=== PATIENT | male | born 1990 | race Caucasian/White ===

== ENCOUNTER 2016-08-24 01:16 | Emergency (ER) | payer SELFPAY ==
--- NOTE | 2016-08-24 01:49 | ER Document Report ---
ED General - General Chief Complaint: Hand Pain Stated Complaint: HAND PAIN Time Seen by Provider: 08/24/16 01:32 Notes: Patient is a 25-year-old male who presents with complaint of pain in his hand. He says he was bit by dog. He went [facility]. He was treated by an orthopedist named Dr. Chavira. Patient says that he was told by Dr. Chavira that he would have to go to the ER to have the sutures removed and that he did not want to see him back in his office. Patient says that Dr. Chavira initially just gave him tramadol for the pain which did not work and then prescribed him just a few oxycodone afterwards. He says he has had no further pain medications from any other providers. Patient denies any fevers. He says he still has pain into the hand and finger and pain that radiates down the arm. He has not followed up with any further orthopedics. TRAVEL OUTSIDE OF THE [place] IN LAST 30 DAYS: No Past Medical History - Social History Smoking Status: Current Every Day Smoker Frequency of alcohol use: Social Drug Abuse: None Family History: Reviewed & Not Pertinent Patient has suicidal ideation: No Patient has homicidal ideation: No Renal/ Medical History: Denies: Hx Peritoneal Dialysis Review of Systems - Review of Systems Notes: My Normal Review Basic REVIEW OF SYSTEMS: CONSTITUTIONAL : Denies fever, chills, or sweats. Denies recent illness. EENT: Denies eye, ear, throat, or mouth pain or symptoms. Denies nasal or sinus congestion. CARDIOVASCULAR: Denies chest pain. RESPIRATORY: Denies cough, cold, or chest congestion. Denies shortness of breath, difficulty breathing, or wheezing. GASTROINTESTINAL: Denies abdominal pain. Denies nausea, vomiting, or diarrhea. Denies constipation. Last BM: MUSCULOSKELETAL: Hand pain. SKIN: Denies rash or skin lesions. NEUROLOGICAL: Denies altered mental status or loss of consciousness. Denies headache. Denies weakness or paralysis or loss of use of either side. Denies problems with gait or speech. Denies sensory or motor loss. ALL OTHER SYSTEMS REVIEWED AND NEGATIVE. Physical Exam - Vital signs Vitals: Temp Pulse Resp BP Pulse Ox 97.9 F 122 H 20 139/97 H 98 08/24/16 01:21 08/24/16 01:21 08/24/16 01:21 08/24/16 01:21 08/24/16 01:21 - Notes Notes: General Appearance: Well nourished, alert, cooperative, no acute distress, moderate obvious discomfort. Vitals: reviewed, See vital signs table. Eyes: PERRL, EOMI, Conjuctiva clear Extremities: strength 5/5 in all extremities, good pulses in all extremities, patient has stitches in the palmar aspect of the right middle finger. He has approximate 9 stitches. He does have some scabbing over some of the stitches over the finger. He is able to partially flex his ankle. He is able to extend the finger. He has decreased distal sensation in the distal third of the finger. He has good capillary refill. Normal color. Minimal swelling. No redness or warmth. No discharge from the finger. Surgical wound appears to have healed well., no edema. Skin: warm, dry, appropriate color, no rash Neuro: speech clear, oriented x 3, normal affect, responds appropriately to questions. Course - Re-evaluation Re-evalutation: 08/24/16 02:12 I was able to get in contact with Dr. Chavira, patient's orthopedic surgeon. He says that is not true that he told the patient come back to the ER for suture removal. He says that he told the patient to call the office to make a follow-up appointment so that they can have the sutures removed and also to start him on physical therapy to help rehabilitate and get function of his finger improved. He says the patient never called made the appointment. He says that it is okay for me to remove the sutures. I did remove the sutures. Patient's mother is now in the room. She says that she was at the appointment and that that is not what Dr. Chavira said. They request to be referred to a different orthopedic or hand surgeon. I will refer him to Dr. Daniels here in town. Encouraged to call the office to make a follow -up appointment. Currently his finger is not red, somewhat abnormally swollen, there is no abnormal drainage, there is no signs of infection on exam. He does have pain. I did ask the patient initially about pain medications and pain prescriptions. I asked him clearly if he had received any pain prescriptions other than the one prescription for Ultram and one prescription for Percocet. I asked him if he received any further pain prescription from any other doctors. Patient told me know multiple times. His [place] controlled substance database report says otherwise. He received a prescription from Dr. Iglesias for Percocet. He received 2 prescriptions of Percocet from Dr. chavez. He then received a prescription for hydrocodone from Dr. Medley who is in [facility]. Informed patient that because of the discrepancy I do not feel comfortable prescribing him opiate pain medications. I told him I would give him 1 dose of pain medication here since it just removed his sutures but do not feel comfortable continuing to prescribe opiate pain medications. Patient and his mother understand. Patient encouraged to return to ER if there is any redness, swelling, abnormal drainage, or signs of infection. He is encouraged follow-up with either Dr. Chavira or Dr. Daniels in regards to his hand and arrangement for physical therapy. 08/25/16 00:46 - Vital Signs Vital signs: Temp Pulse Resp BP Pulse Ox 97.2 F 94 16 141/91 H 99 08/24/16 02:24 08/24/16 02:24 08/24/16 02:24 08/24/16 02:24 08/24/16 02:24 Discharge - Discharge Clinical Impression: Encounter for removal of sutures, Post-op pain Condition: Good Disposition: HOME, SELF-CARE Additional Instructions: Please return to the ER immediately if you have worsening pain, fevers, increasing swelling, redness or feel unwell. Please followup with Dr. Chavira or Dr. Daniels for reevaluation and arrangement for therapy, and continued management of your hand . Referrals: LITA DANIELS DO [ACTIVE STAFF] - Follow up in 3-5 days
[2016-08-24] MEDS ORDERED: OXYCODONE-ACETAMINOPHEN 5-325 MG TABLET PO ONE (02:18)
[2016-08-24 02:25] VITALS: BP 141/91
== END 2016-08-24 02:25 | disposition home or self-care (01) ==
LOC: ER 01:16
DX: S61.252D Open bite of right middle finger without damage to nail, subsequent encounter (principal); W54.0XXD Bitten by dog, subsequent encounter; G89.18 Other acute postprocedural pain; M79.643 Pain in unspecified hand; M79.646 Pain in unspecified finger(s); R20.8 Other disturbances of skin sensation; F17.200 Nicotine dependence, unspecified, uncomplicated
CPT/HCPCS: 99283

== ENCOUNTER 2019-01-13 23:34 | Emergency (ER) | payer SELFPAY ==
[2019-01-14] MEDS ORDERED: ONDANSETRON HCL INJ/PF 4 MG/2 ML SDV IV ONE (01:34)
[2019-01-14] MEDS ORDERED: NORMAL SALINE 500 ML IV ONE (01:35)
[2019-01-14 01:40] LABS: ABSOLUTE BASOPHILS # (AUTO) 0.1 10^3/uL (0.0-0.2); ABSOLUTE EOSINOPHILS # (AUTO) 0.1 10^3/uL (0.0-0.6); ABSOLUTE LYMPHOCYTES (AUTO) 2.2 10^3/uL (0.5-4.7); ABSOLUTE MONOCYTES (AUTO) 0.7 10^3/uL (0.1-1.4); BASOPHILS % (AUTO) 0.8 % (0-2); EOSINOPHILS % (AUTO) 1.1 % (0-6); HEMATOCRIT 44.6 % (37.9-51.0); HEMOGLOBIN 15.2 g/dL (13.5-17.0); LYMPHOCYTES % (AUTO) 16.4 % (13-45); MEAN CORPUSCULAR HEMOGLOBIN 33.3 pg (27.0-33.4); MEAN CORPUSCULAR HGB CONC 34.1 g/dL (32.0-36.0); MEAN CORPUSCULAR VOLUME 98 fl (80-97); MONOCYTES % (AUTO) 5.3 % (3-13); PLATELET COUNT 326 10^3/uL (150-450); RED BLOOD COUNT 4.56 10^6/uL (4.35-5.55); RED CELL DISTRIBUTION WIDTH 13.5 % (11.5-14.0); SEGMENTED NEUTROPHILS % (AUTO) 76.4 % (42-78); TOTAL CELLS COUNTED % (AUTO) 100 %; WHITE BLOOD COUNT 13.1 10^3/uL (4.0-10.5)
[2019-01-14 01:50] LABS: APPEARANCE,URINE SLIGHTLY-CLOUDY; BILIRUBIN,URINE NEGATIVE (NEGATIVE); COLOR,URINE YELLOW; GLUCOSE, URINE NEGATIVE (NEGATIVE); KETONES,URINE NEGATIVE (NEGATIVE); LEUKOCYTE ESTERASE,URINE MODERATE (NEGATIVE); NITRITE,URINE NEGATIVE (NEGATIVE); PROTEIN,URINE 30 mg/dL (NEGATIVE); UROBILINOGEN,URINE NEGATIVE mg/dL (<2.0)
[2019-01-14 03:30] LABS: ALBUMIN 4.1 g/dL (3.5-5.0); ALKALINE PHOSPHATASE 68 U/L (38-126); ANION GAP 8 (5-19); ASPARTATE AMINO TRANSFERASE 20 U/L (17-59); BILIRUBIN,DIRECT 0.1 mg/dL (0.0-0.4); BILIRUBIN,TOTAL 0.4 mg/dL (0.2-1.3); BLOOD UREA NITROGEN 17 mg/dL (7-20); CALCIUM 9.2 mg/dL (8.4-10.2); CARBON DIOXIDE 27 mmol/L (22-30); CHLORIDE 107 mmol/L (98-107); GLUCOSE 89 mg/dL (75-110); POTASSIUM 4.7 mmol/L (3.6-5.0); TOTAL PROTEIN 6.8 g/dL (6.3-8.2)
[2019-01-14] MEDS ORDERED: MORPHINE SULFATE 10 MG/ML INJ IV ONE (03:50)
[2019-01-14] MEDS ORDERED: KETOROLAC TROMETHAMINE INJ/PF 30 MG/1 ML SDV IV ONE (03:50)
[2019-01-14] MEDS ORDERED: NORMAL SALINE 1000 ML 1,500 ML IV ONE (03:50)
--- NOTE | 2019-01-14 03:53 | ER Document Report ---
ED GI/ - General Chief Complaint: Flank Pain Stated Complaint: ABDOMINAL PAIN Time Seen by Provider: 01/14/19 03:40 Notes: Mr. Seaman is a 28-year-old male with history of kidney stones, congenital solitary right-sided kidney, PTSD, anxiety presenting to the ED for right-sided flank pain. Patient states it began just earlier this evening. He also endorses some pink-tinged urine. Patient denies any chest pain, shortness of breath or cough. He states that he did not have nausea until he arrived to the ED and and threw up twice however the nausea medication that was provided to him did help. Patient also denies any known fevers but does endorse subjective fevers and chills. No difficulty initiating stream. Patient also adds that he has had multiple history of spontaneous pneumothorax is on the left and has had 2 pleurodesis. TRAVEL OUTSIDE OF THE [place] IN LAST 30 DAYS: No - Related Data Allergies/Adverse Reactions: NSAIDS (Non-Steroidal Anti-Inflamma Allergy (Verified 01/14/19 01:36) Past Medical History - Social History Smoking Status: Former Smoker Family History: Reviewed & Not Pertinent Patient has suicidal ideation: No Patient has homicidal ideation: No Renal/ Medical History: Reports: Hx Kidney Stones. Denies: Hx Peritoneal Dialysis Review of Systems - Review of Systems Constitutional: See HPI EENT: No symptoms reported Cardiovascular: No symptoms reported Respiratory: No symptoms reported Gastrointestinal: No symptoms reported Genitourinary: See HPI Male Genitourinary: No symptoms reported Musculoskeletal: No symptoms reported Skin: No symptoms reported Hematologic/Lymphatic: No symptoms reported Neurological/Psychological: No symptoms reported Physical Exam - Vital signs Vitals: Temp Pulse Ox 97.9 F 98 01/13/19 23:35 01/13/19 23:35 Interpretation: Hypertensive - General General appearance: Appears well, Alert - HEENT Head: Normocephalic, Atraumatic Eyes: Normal Pupils: PERRL - Respiratory Respiratory status: No respiratory distress Chest status: Nontender Breath sounds: Normal Chest palpation: Normal - Cardiovascular Rhythm: Regular Heart sounds: Normal auscultation Murmur: No - Abdominal Inspection: Normal Distension: No distension Bowel sounds: Normal Tenderness: Nontender Organomegaly: No organomegaly - Back Back: Normal, Nontender, CVA tenderness - CVA tenderness - Extremities General upper extremity: Normal inspection, Nontender, Normal color, Normal ROM, Normal temperature General lower extremity: Normal inspection, Nontender, Normal color, Normal ROM, Normal temperature, Normal weight bearing. No: Raheel's sign - Neurological Neuro grossly intact: Yes Cognition: Normal Orientation: AAOx4 Leopoldo Coma Scale Eye Opening: Spontaneous Leopoldo Coma Scale Verbal: Oriented Leopoldo Coma Scale Motor: Obeys Commands [place] Coma Scale Total: 15 Speech: Normal Motor strength normal: LUE, RUE, LLE, RLE Sensory: Normal - Psychological Associated symptoms: Normal affect, Normal mood - Skin Skin Temperature: Warm Skin Moisture: Dry Skin Color: Normal Course - Re-evaluation Re-evalutation: Patient is uncomfortable appearing but nontoxic. Initial vitals blood for elevated blood pressure. Differential diagnosis includes UTI, pyelonephritis, nephrolithiasis, infected stone CBC notable for leukocytosis to 13 without significant left shift. CMP within normal limits. UA does show evidence of significant amount of RBCs and only 12 WBCs. Patient did have some mild CVA tenderness however the UA is not consistent with a significant UTI or pyelonephritis. Lipase is mildly at 498 h owever elevated however this is not consistent with pancreatitis. Patient denies any history of gallstones or significant alcohol use. He denies any previous history of pancreatitis in the past. In addition the patient is primarily tender in the right flank radiating down to his right groin and not over the epigastrium or left upper quadrant. 01/14/19 03:48 And ordered for Toradol as well as morphine for pain control. His states his family has had history of GI bleeding with NSAIDs he was told by his doctor not to take it however he does not have a true allergy. 01/14/19 05:[address] is negative for any acute process. No evidence of stones on the right. Congenital solitary kidney noted with no left kidney. Feels improved after IV fluids as well as pain medications. He is requesting further clarification of the etiology of the hematuria. I explained that normally kidney stones are the #1 cause however he might need further evaluation by urology. Patient referred back to his primary care doctor for urology referral. 01/14/19 06:31 Tox returned much later and was positive for marijuana as well as benzos. - Vital Signs Vital signs: Temp Pulse Resp BP Pulse Ox 98.6 F 86 16 151/86 H 98 01/14/19 05:27 01/14/19 05:27 01/14/19 05:27 01/14/19 05:27 01/14/19 05:27 - Laboratory Result Diagrams: 01/14/19 01:30 01/14/19 02:50 Laboratory results interpreted by me: 01/14/19 01/14/19 01/14/19 01:30 01:30 02:50 WBC 13.1 H MCV 98 H Absolute Neuts (auto) 10.0 H Lipase 498.1 H Urine Protein 30 H Urine Blood LARGE H Ur Leukocyte Esterase MODERATE H Discharge - Discharge Clinical Impression: Right flank pain Hematuria Qualifiers: Hematuria type: unspecified type Qualified Code(s): R31.9 - Hematuria, unspecified Condition: Good Disposition: HOME, SELF-CARE Instructions: Flank Pain ([facility]), Hematuria ([facility]) Additional Instructions: I would recommend that you drink plenty of water and or Gatorade and stay well- hydrated. I would also recommend that you follow-up with your primary care doctor and request a referral to urology. Use Tylenol 650 every 6-8 hours as needed for pain control.
--- NOTE | 2019-01-14 04:39 | RADIOLOGY REPORT (SQ) ---
EXAM DESCRIPTION: CT ABDOMEN PELVIS WITHOUT IV CONTRAST COMPLETED DATE/TME: 01/14/2019 03:42 CLINICAL HISTORY: 28 years, Male, RIGHT flank pain COMPARISON: None. TECHNIQUE: 308 Images stored on PACS. All CT scanners at this facility use dose modulation, iterative reconstruction, and/or weight based dosing when appropriate to reduce radiation dose to as low as reasonably achievable (ALARA). [facility]: Dose Right [facility]: CareDose [facility]: Dose Right [facility]: Teradose 4D [facility]: HE[facility] [employer] LIMITATIONS: None. FINDINGS: Limited evaluation of the lung bases is unremarkable. Osseous structures are grossly intact. Limited evaluation of the liver, spleen, adrenal glands, pancreas is unremarkable. A normal left kidney is not present. Unremarkable appearance to the right kidney. Negative for urinary tract calculus or hydronephrosis. No gross evidence for bowel obstruction. Large amount of stool in the colon. Normal appendix. No free air or free fluid IMPRESSION: There is no left kidney, likely congenitally absent. Unremarkable appearance to the right kidney. Abundant stool in the colon TECHNICAL DOCUMENTATION: Quality ID # [id number]: Final reports with documentation of one or more dose reduction techniques (e.g., Automated exposure control, adjustment of the mA and/or kV according to patient size, use of iterative reconstruction technique) copyright 2010 [employer]- All Rights Reserved
[2019-01-14 05:27] VITALS: BP 151/86
[2019-01-14 05:53] LABS: URINE AMPHETAMINES SCREEN NEGATIVE; URINE BARBITURATES SCREEN NEGATIVE; URINE COCAINE SCREEN NEGATIVE; URINE METHADONE SCREEN NEGATIVE; URINE PHENCYCLIDINE SCREEN NEGATIVE
[2019-01-14 05:54] LABS: URINE BENZODIAZEPINES SCREEN UNCONFIRMED POSITIVE; URINE MARIJUANA (THC) SCREEN UNCONFIRMED POSITIVE
== END 2019-01-14 05:27 | disposition home or self-care (01) ==
LOC: ER 23:34
DX: R10.9 Unspecified abdominal pain (principal); R31.9 Hematuria, unspecified; R11.2 Nausea with vomiting, unspecified; D72.829 Elevated white blood cell count, unspecified; R10.819 Abdominal tenderness, unspecified site; Q60.0 Renal agenesis, unilateral; Z87.442 Personal history of urinary calculi; Z87.891 Personal history of nicotine dependence
CPT/HCPCS: 99284; 96361; 96374; 96375; 36415; 83690; 85025; 80053; 81001; 80307; 74176; J1885; J2270; J2405; J7030; J7040

== ENCOUNTER 2019-07-29 16:15 | Emergency (ER) | payer SELFPAY ==
--- NOTE | 2019-07-29 16:50 | RADIOLOGY REPORT (SQ) ---
EXAM DESCRIPTION: ANKLE RIGHT COMPLETE IMAGES COMPLETED DATE/TIME: 07/29/2019 4:37 pm REASON FOR STUDY: pain COMPARISON: None. NUMBER OF VIEWS: Three views. TECHNIQUE: AP, lateral, and oblique radiographic images acquired of the right ankle. LIMITATIONS: None. FINDINGS: MINERALIZATION: Normal. BONES: No acute fracture or dislocation. No worrisome bone lesions. JOINTS: No effusions. SOFT TISSUES: No soft tissue swelling. No foreign body. OTHER: No other significant finding. IMPRESSION: NEGATIVE STUDY OF THE RIGHT ANKLE. NO RADIOGRAPHIC EVIDENCE OF ACUTE INJURY. TECHNICAL DOCUMENTATION: JOB ID: [id number] 2010 [employer] All Rights Reserved Reading location - IP/workstation name: [email or web address]
--- NOTE | 2019-07-29 16:50 | RADIOLOGY REPORT (SQ) ---
EXAM DESCRIPTION: FOOT RIGHT COMPLETE IMAGES COMPLETED DATE/TIME: 07/29/2019 4:37 pm REASON FOR STUDY: pain COMPARISON: None. NUMBER OF VIEWS: Three views. TECHNIQUE: AP, lateral and oblique radiographic images acquired of the right foot. LIMITATIONS: None. FINDINGS: MINERALIZATION: Normal. BONES: No acute fracture or dislocation. JOINTS: The normal tarsometatarsal alignment is preserved. SOFT TISSUES: No soft tissue swelling or radiopaque foreign body. OTHER: No other finding. IMPRESSION: No acute osseous abnormality of the right foot. TECHNICAL DOCUMENTATION: JOB ID: [id number] [employer]- All Rights Reserved Reading location - IP/workstation name: [email or web address]
--- NOTE | 2019-07-29 16:55 | ER Document Report ---
ED Medical Screen (RME) - General Chief Complaint: Foot Pain Stated Complaint: RIGHT FOOT PAIN Time Seen by Provider: 07/29/19 16:51 Notes: This 28-year-old male who presents to the emergency room today stating that he was out drinking last night woke up in the field this afternoon about 1:00 has no recollection of how he got there. He states that waking up in the field is non-abnormal occurrence for him recently that he has a problem with alcohol and he would like some assistance with that. That is part of his reason for presenting to the hospital today he also stated that he had pain to the right foot laterally at the fifth metatarsal x-rays were obtained and were negative TRAVEL OUTSIDE OF THE [place] IN LAST 30 DAYS: No - Related Data Allergies/Adverse Reactions: NSAIDS (Non-Steroidal Anti-Inflamma Allergy (Verified 01/14/19 01:36) Home Medications: lisinopril. zoloft Past Medical History - Social History Frequency of alcohol use: Heavy Drug Abuse: Marijuana Renal/ Medical History: Reports: Hx Kidney Stones. Denies: Hx Peritoneal Dialysis Physical Exam - Vital signs Vitals: Temp Pulse Resp BP Pulse Ox 99.3 F 102 H 20 158/104 H 97 07/29/19 16:22 07/29/19 16:22 07/29/19 16:22 07/29/19 16:22 07/29/19 16:22 Course - Vital Signs Vital signs: Temp Pulse Resp BP Pulse Ox 99.3 F 102 H 20 158/104 H 97 07/29/19 16:22 07/29/19 16:22 07/29/19 16:22 07/29/19 16:22 07/29/19 16:22
[2019-07-29 17:38] LABS: ABSOLUTE LYMPHOCYTES (AUTO) 1.7 10^3/uL (0.5-4.7); ABSOLUTE MONOCYTES (AUTO) 0.6 10^3/uL (0.1-1.4); ABSOLUTE NEUT (AUTO) 7.5 10^3/uL (1.7-8.2); APPEARANCE,URINE CLOUDY; BASOPHILS % (AUTO) 0.4 % (0-2); BILIRUBIN,URINE NEGATIVE (NEGATIVE); COLOR,URINE AMBER; EOSINOPHILS % (AUTO) 0.5 % (0-6); GLUCOSE, URINE NEGATIVE (NEGATIVE); HEMATOCRIT 45.7 % (37.9-51.0); HEMOGLOBIN 15.9 g/dL (13.5-17.0); KETONES,URINE NEGATIVE (NEGATIVE); LEUKOCYTE ESTERASE,URINE NEGATIVE (NEGATIVE); LYMPHOCYTES % (AUTO) 17.4 % (13-45); MEAN CORPUSCULAR HEMOGLOBIN 34.4 pg (27.0-33.4); MEAN CORPUSCULAR HGB CONC 34.8 g/dL (32.0-36.0); MEAN CORPUSCULAR VOLUME 99 fl (80-97); MONOCYTES % (AUTO) 6.2 % (3-13); NITRITE,URINE NEGATIVE (NEGATIVE); PLATELET COUNT 275 10^3/uL (150-450); PROTEIN,URINE 30 mg/dL (NEGATIVE); RED BLOOD COUNT 4.63 10^6/uL (4.35-5.55); SEGMENTED NEUTROPHILS % (AUTO) 75.5 % (42-78); TOTAL CELLS COUNTED % (AUTO) 100 %; URINE SPECIFIC GRAVITY 1.032; WHITE BLOOD COUNT 9.9 10^3/uL (4.0-10.5)
[2019-07-29 17:50] LABS: ALBUMIN 4.8 g/dL (3.5-5.0); ALCOHOL 72 mg/dL (NONE DETECTED); ALKALINE PHOSPHATASE 109 U/L (38-126); ANION GAP 9 (5-19); ASPARTATE AMINO TRANSFERASE 33 U/L (17-59); BILIRUBIN,TOTAL 0.8 mg/dL (0.2-1.3); BLOOD UREA NITROGEN 13 mg/dL (7-20); CALCIUM 9.8 mg/dL (8.4-10.2); CARBON DIOXIDE 26 mmol/L (22-30); CHLORIDE 106 mmol/L (98-107); GLUCOSE 72 mg/dL (75-110); POTASSIUM 4.3 mmol/L (3.6-5.0); TOTAL PROTEIN 7.9 g/dL (6.3-8.2)
[2019-07-29 17:51] LABS: URINE AMPHETAMINES SCREEN NEGATIVE; URINE BARBITURATES SCREEN NEGATIVE; URINE BENZODIAZEPINES SCREEN NEGATIVE; URINE COCAINE SCREEN NEGATIVE; URINE METHADONE SCREEN NEGATIVE; URINE PHENCYCLIDINE SCREEN NEGATIVE
[2019-07-29 17:52] LABS: URINE MARIJUANA (THC) SCREEN UNCONFIRMED POSITIVE
--- NOTE | 2019-07-29 19:35 | ER Document Report ---
ED General - General Chief Complaint: Foot Pain Stated Complaint: RIGHT FOOT PAIN Time Seen by Provider: 07/29/19 16:51 Mode of Arrival: Medic Information source: Patient TRAVEL OUTSIDE OF THE [place] IN LAST 30 DAYS: No - HPI Onset: Other - patient has had right foot pain for days but he has had a drinking problem for some time now Exacerbated by: Other - weight bearing on right foot Relieved by: Other Similar symptoms previously: Yes - patient has not had this foot pain before but he has had drinking problems Recently seen / treated by doctor: No Notes: 28 year old male with a history of Alcohol Abuse here in the ER for right foot pain (he is unsure how he injured his right foot) and a desire to stop get help to stop drinking. The patient drinks about 8 drinks a day and he frequently blacks out. The patient recently woke up 3 miles from his house and he has no idea ho he got there. The patient is able to ambulate on his right foot but he has some pain doing so. - Related Data Allergies/Adverse Reactions: NSAIDS (Non-Steroidal Anti-Inflamma Allergy (Verified 01/14/19 01:36) Home Medications: lisinopril. zoloft Past Medical History - General Information source: Patient - Social History Smoking Status: Current Every Day Smoker Frequency of alcohol use: Heavy - daily drinker Drug Abuse: Marijuana Family History: Reviewed & Not Pertinent Renal/ Medical History: Reports: Hx Kidney Stones. Denies: Hx Peritoneal Dialysis Review of Systems - Review of Systems Constitutional: No symptoms reported EENT: No symptoms reported Cardiovascular: No symptoms reported Respiratory: No symptoms reported Gastrointestinal: No symptoms reported Genitourinary: No symptoms reported Male Genitourinary: No symptoms reported Musculoskeletal: Other - right lateral foot pain Skin: Other - brusing of right foot Hematologic/Lymphatic: No symptoms reported Neurological/Psychological: Depression, Other - Alcohol Abuse -: Yes All other systems reviewed and negative Physical Exam - Vital signs Vitals: Temp Pulse Resp BP Pulse Ox 99.3 F 102 H 20 158/104 H 97 07/29/19 16:22 07/29/19 16:22 07/29/19 16:22 07/29/19 16:22 07/29/19 16:22 - Notes Notes: GENERAL: Well-appearing, well-nourished and in no acute distress. HEAD: Atraumatic, normocephalic. EYES: Pupils equal round and reactive to light, extraocular movements intact, sclera anicteric, conjunctiva are normal. ENT: External ears normal, nares patent, oropharynx clear without exudates. Moist mucous membranes. NECK: Normal range of motion, supple without lymphadenopathy or JVD. LUNGS: Breath sounds clear to auscultation bilaterally and equal. No wheezes rales or rhonchi. HEART: Regular rate and rhythm without murmurs, rubs or gallops. ABDOMEN: Soft, nontender, normoactive bowel sounds. No guarding, no rebound. No masses appreciated. EXTREMITIES: Normal range of motion, no pitting or edema. No clubbing or cya nosis. NEUROLOGICAL: Cranial nerves II through XII grossly intact. Normal speech, normal gait. PSYCH: Normal mood, normal affect. SKIN: Warm, Dry, normal turgor, no rashes or lesions noted. Course - Re-evaluation Re-evalutation: 07/29/19 19:48 The patient seems to have some old bruises on his right foot. He has been drinking heavily and blacking out frequently so there is no telling when or how he injured his foot. No fractures seen on Xrays. Patient likely has pain from contusions/sprains. Patient told to ice his foot and to use NSAIDS. Will try to send the patient to [facility] for Detox as he wants help. Patient denies SI or HI. 07/29/19 20:00 [facility] has a bed for the patient so will DC from the ER and have him go directly to [facility] to get help with his drinking problem. - Vital Signs Vital signs: Temp Pulse Resp BP Pulse Ox 99.3 F 102 H 20 158/104 H 97 07/29/19 16:22 07/29/19 16:22 07/29/19 16:22 07/29/19 16:22 07/29/19 16:22 - Laboratory Result Diagrams: 07/29/19 17:14 07/29/19 17:14 Laboratory results interpreted by me: 07/29/19 07/29/19 07/29/19 17:14 17:14 17:14 MCV 99 H MCH 34.4 H Glucose 72 L Urine Protein 30 H Urine Blood LARGE H Urine Urobilinogen 2.0 H Urine Ascorbic Acid 20 H - Diagnostic Test Radiology reviewed: Image reviewed, Reports reviewed Discharge - Discharge Clinical Impression: Alcohol abuse Contusion, foot Qualifiers: Encounter type: initial encounter Laterality: right Qualified Code(s): S90.31XA - Contusion of right foot, initial encounter Condition: Stable Disposition: HOME, SELF-CARE Instructions: Chronic Alcoholism ([facility]), Plantar Fasciitis or Heel Spur ([facility]) Additional Instructions: Use Tylenol and Motrin for foot pain as well as ice packs. Follow up with an Orthopedic Surgeon if your foot pains persist. Go to directly to [facility] to get help with your drinking problem.
[2019-07-29 20:12] VITALS: BP 149/78
== END 2019-07-29 20:10 | disposition home or self-care (01) ==
LOC: ER 16:15
DX: S90.31XA Contusion of right foot, initial encounter (principal); X58.XXXA Exposure to other specified factors, initial encounter; F10.10 Alcohol abuse, uncomplicated; M79.671 Pain in right foot; F17.200 Nicotine dependence, unspecified, uncomplicated; F12.10 Cannabis abuse, uncomplicated; F32.9 Major depressive disorder, single episode, unspecified; Z79.899 Other long term (current) drug therapy; Z88.8 Allergy status to other drugs, medicaments and biological substances
CPT/HCPCS: 36415; 80053; 80307; 81001; 85025; 99284

== ENCOUNTER 2019-07-30 23:18 | Emergency (ER) | payer SELFPAY ==
[2019-07-30] MEDS ORDERED: MORPHINE SULFATE 10 MG/ML INJ IV ONE (23:47)
[2019-07-30] MEDS ORDERED: ONDANSETRON HCL INJ/PF 4 MG/2 ML SDV IV ONE (23:47)
--- NOTE | 2019-07-30 23:48 | ER Document Report ---
ED Medical Screen (RME) - General Chief Complaint: Flank Pain Stated Complaint: POSSIBLE KIDNEY STONE Notes: Patient is a 28-year-old white male with a history of multiple kidney stones who was born with 1 kidney on the right resents today with a chief complaint of a r ight-sided "kidney pain". He states this feels exactly like his prior 5 or 6 stones he is had in the past. He states he has had some urinary dribbling with low output. States he had had lithotripsy once but otherwise he passed the rest on his own. No invasive urologic surgeries. Denies any nausea or vomiting or fever. No testicular pain or swelling. I have treated and performed a rapid initial assessment of this patient. A comprehensive ED assessment and evaluation of the patient, analysis of test results and completion of medical decision making process will be conducted by additional ED providers. PHYSICAL EXAMINATION: GENERAL: Well-appearing, well-nourished and in no acute distress. A&Ox4. Answers questions appropriately. TRAVEL OUTSIDE OF THE [place] IN LAST 30 DAYS: No - Related Data Allergies/Adverse Reactions: NSAIDS (Non-Steroidal Anti-Inflamma Allergy (Verified 01/14/19 01:36) Past Medical History - Social History Chew tobacco use (# tins/day): No Frequency of alcohol use: Heavy Drug Abuse: Marijuana Renal/ Medical History: Reports: Hx Kidney Stones. Denies: Hx Peritoneal Dialysis Physical Exam - Vital signs Vitals: Temp 98.1 F 07/30/19 23:41 Course - Vital Signs Vital signs: Temp Pulse Resp BP Pulse Ox 98.1 F 128 H 18 163/97 H 96 07/30/19 23:46 07/30/19 23:46 07/30/19 23:46 07/30/19 23:46 07/30/19 23:46
--- NOTE | 2019-07-31 01:04 | RADIOLOGY REPORT (SQ) ---
CLINICAL HISTORY: r flank pain h/o stones COMPARISON: 01/14/2019. TECHNIQUE: CT ABDOMEN PELVIS WITHOUT IV CONTRAST on 07/30/2019 11:46 PM CDT This exam was performed according to our departmental dose-optimization program, which includes automated exposure control, adjustment of the mA and/or kV according to patient size and/or use of iterative reconstruction technique. FINDINGS: Lower lungs are clear. Abdomen: The liver is normal in appearance. There is no biliary dilatation. Gallbladder is normal in appearance. The pancreas and spleen are normal in appearance. Adrenal glands are normal. There is a punctate mid pole right renal calculus without hydronephrosis. Left kidney is absent. Abdominal aorta is normal in course and caliber without aneurysm. There is no free air. There is no retroperitoneal adenopathy. Pelvis: There is no bowel obstruction. Urinary bladder is unremarkable. There is no free fluid. Appendix is somewhat poorly seen but there is no pericecal inflammation. Skeleton: There are no acute osseous findings. No suspicious bony lesions. IMPRESSION: No definite acute process. Unchanged minimal right nephrolithiasis without hydronephrosis.
[2019-07-31 01:56] LABS: AMORPHOUS SEDIMENT,URINE TRACE /HPF; APPEARANCE,URINE SLIGHTLY-CLOUDY; BILIRUBIN,URINE NEGATIVE (NEGATIVE); COLOR,URINE YELLOW; GLUCOSE, URINE NEGATIVE (NEGATIVE); KETONES,URINE NEGATIVE (NEGATIVE); PROTEIN,URINE NEGATIVE (NEGATIVE); URINE SPECIFIC GRAVITY 1.005; UROBILINOGEN,URINE NEGATIVE mg/dL (<2.0)
[2019-07-31 02:42] LABS: ABSOLUTE EOSINOPHILS # (AUTO) 0.1 10^3/uL (0.0-0.6); ABSOLUTE LYMPHOCYTES (AUTO) 1.7 10^3/uL (0.5-4.7); ABSOLUTE MONOCYTES (AUTO) 0.7 10^3/uL (0.1-1.4); ABSOLUTE NEUT (AUTO) 3.9 10^3/uL (1.7-8.2); BASOPHILS % (AUTO) 0.7 % (0-2); EOSINOPHILS % (AUTO) 1.1 % (0-6); HEMATOCRIT 44.1 % (37.9-51.0); HEMOGLOBIN 15.1 g/dL (13.5-17.0); LYMPHOCYTES % (AUTO) 26.5 % (13-45); MEAN CORPUSCULAR HGB CONC 34.2 g/dL (32.0-36.0); MEAN CORPUSCULAR VOLUME 99 fl (80-97); MONOCYTES % (AUTO) 11.1 % (3-13); PLATELET COUNT 210 10^3/uL (150-450); RED BLOOD COUNT 4.43 10^6/uL (4.35-5.55); RED CELL DISTRIBUTION WIDTH 12.7 % (11.5-14.0); SEGMENTED NEUTROPHILS % (AUTO) 60.6 % (42-78); TOTAL CELLS COUNTED % (AUTO) 100 %; WHITE BLOOD COUNT 6.5 10^3/uL (4.0-10.5)
[2019-07-31 02:51] LABS: ALBUMIN 4.4 g/dL (3.5-5.0); ALKALINE PHOSPHATASE 93 U/L (38-126); ASPARTATE AMINO TRANSFERASE 28 U/L (17-59); BILIRUBIN,TOTAL 1.1 mg/dL (0.2-1.3); BLOOD UREA NITROGEN 11 mg/dL (7-20); CARBON DIOXIDE 29 mmol/L (22-30); CHLORIDE 105 mmol/L (98-107); GLUCOSE 110 mg/dL (75-110); POTASSIUM 4.3 mmol/L (3.6-5.0); TOTAL PROTEIN 7.3 g/dL (6.3-8.2)
[2019-07-31] MEDS ORDERED: ONDANSETRON HCL INJ/PF 4 MG/2 ML SDV ONE (03:13)
[2019-07-31 03:16] LABS: ANION GAP 4 (5-19)
[2019-07-31 06:26] VITALS: BP 148/72
--- NOTE | 2019-07-31 11:34 | ER Document Report ---
Entered by BIN SANTIZO SCRIBE 07/31/19 0641 Acting as scribe for:OLGA MCDANIEL MD ED GI/ - General Chief Complaint: Flank Pain Stated Complaint: POSSIBLE KIDNEY STONE Mode of Arrival: Ambulatory Information source: Patient Notes: This 28 year old male patient presents to the emergency department today with complaints of right sided flank pain with associated hematuria. Patient was seen here yesterday for help with alcohol detox and he was sent to [facility]. Patient states that while he was there over night last night he went to use the restroom and only had a small amount of urine come out and he noticed it was bloody. Patient has had kidney stones in the past. TRAVEL OUTSIDE OF THE [place] IN LAST 30 DAYS: No - Related Data Allergies/Adverse Reactions: NSAIDS (Non-Steroidal Anti-Inflamma Allergy (Verified 01/14/19 01:36) Past Medical History - General Information source: Patient - Social History Smoking Status: Current Every Day Smoker Cigarette use (# per day): Yes Chew tobacco use (# tins/day): No Frequency of alcohol use: Heavy Drug Abuse: Marijuana Lives with: Family Family History: Reviewed & Not Pertinent Renal/ Medical History: Reports: Hx Kidney Stones Surgical Hx: Negative Review of Systems - Review of Systems Constitutional: No symptoms reported EENT: No symptoms reported Cardiovascular: No symptoms reported Respiratory: No symptoms reported Gastrointestinal: No symptoms reported Genitourinary: See HPI, Dysuria, Flank pain, Hematuria, Urgency Male Genitourinary: No symptoms reported Musculoskeletal: No symptoms reported Skin: No symptoms reported Hematologic/Lymphatic: No symptoms reported Neurological/Psychological: No symptoms reported -: Yes All other systems reviewed and negative Physical Exam - Vital signs Vitals: Temp 98.1 F 07/30/19 23:41 - Notes Notes: Physical Exam: General: Alert, appears well. HEENT: Normocephalic. Atraumatic. PERRL. Extraocular movements intact. Oropharynx clear. Neck: Supple. Non-tender. Respiratory: No respiratory distress. Clear and equal breath sounds bilaterally. Cardiovascular: Regular rate and rhythm. Abdominal: Normal Inspection. Non-tender. No distension. Normal Bowel Sounds. Back: Right side paravertebral lumbar musculature tenderness to palpation. Extremities: Moves all four extremities. Upper extremities: Normal inspection. Normal ROM. Lower extremities: Normal inspection. No edema. Normal ROM. Neurological: Normal cognition. AAOx4. Normal speech. Psychological: Normal affect. Normal Mood. Skin: Warm. Dry. Normal color. Course - Vital Signs Vital signs: Temp Pulse Resp BP Pulse Ox 98.4 F 88 16 148/72 H 98 07/31/19 06:25 07/31/19 06:25 07/31/19 06:25 07/31/19 06:25 07/31/19 06:25 - Laboratory Result Diagrams: 07/31/19 02:26 07/31/19 02:26 Laboratory results interpreted by me: 07/31/19 07/31/19 07/31/19 01:26 02:26 02:26 MCV 99 H MCH 34.0 H Anion Gap 4 L Urine Blood LARGE H Leukocyte Esterase Rfl LARGE H Discharge - Discharge Clinical Impression: Acute right flank pain Hematuria Qualifiers: Hematuria type: unspecified type Qualified Code(s): R31.9 - Hematuria, un specified Condition: Stable Disposition: HOME, SELF-CARE Additional Instructions: Flank Pain We weren't able to prove an exact cause for your flank pain. Pain in the flank can be caused by a muscle strain or spasm. Sometimes a kidney stone causes pain, but can't be found on our tests. Infection in the kidney should be evident on a urine test. Early shingles can occasionally cause flank pain, without the rash that proves the diagnosis. On rare occasions, disease of the pancreas, aorta, spleen, or colon can create pain in the flank. At this time, there's no evidence of a dangerous condition, and it seems sa fe for you to be at home. If the pain goes away and does not come back, no further testing will be needed. If pain persists, or becomes more severe, we may need to repeat some tests or order additional new testing. Blood in the urine, urgency to urinate frequently, and pain that radiates to the groin can indicate a kidney stone. Fever may mean that the pain is due to infection, either of the kidney or the colon (diverticulitis). If your pain is early shingles, you should develop an eruption of blisters in the painful area within a few days. Call the doctor or return if you have pain that is spreading or becoming more severe, pain that does not resolve with time, fever, or any other new symptoms. Your CT scan today did not show any hydronephrosis, hydroureter, or stones in the ureter. There are some small stones in the kidney which you were already aware of. There was some blood in your urine today. Your physical exam shows most of the tenderness to be in the right lumbar back muscles. Based on your history, exam, and lab work, you may have passed a small stone earlier. Continue to drink plenty of fluids and try to rest your painful back muscles. Follow-up with a local medical doctor if not improving. RETURN TO THE EMERGENCY ROOM IF ANY NEW OR WORSENING SYMPTOMS. I personally performed the services described in the documentation, reviewed and edited the documentation which was dictated to the scribe in my presence, and it accurately records my words and actions.
== END 2019-07-31 06:59 | disposition home or self-care (01) ==
LOC: ER 23:18
DX: N20.0 Calculus of kidney (principal); R31.0 Gross hematuria; R10.9 Unspecified abdominal pain; F17.210 Nicotine dependence, cigarettes, uncomplicated; Z88.8 Allergy status to other drugs, medicaments and biological substances; R30.0 Dysuria; R39.15 Urgency of urination
CPT/HCPCS: 99284; 96374; 36415; 83690; 85025; 80053; 81001; 74176; J2405

== ENCOUNTER 2019-09-07 10:12 | Inpatient (IN) | payer SELFPAY ==
[2019-09-07] MEDS ORDERED: FENTANYL CITRATE INJ/PF 100 MCG/2 ML AMPUL IV ONE ×2 (10:58→14:42)
[2019-09-07] MEDS ORDERED: CEFTRIAXONE 1 GM/D5W RTU 1 GM/50 ML RTUPB IV ONE (10:59)
--- NOTE | 2019-09-07 11:00 | ER Document Report ---
ED Medical Screen (RME) - General Stated Complaint: RIGHT ELBOW INJURY Time Seen by Provider: 09/07/19 10:56 Notes: HPI: 28-year-old male presenting with an infection to the right elbow. Patient states he caught it on metal wiring 2 and half days ago cutting the back of the elbow. Now with redness and swelling to the elbow. Has been icing it at home. Low-grade fevers at home. States his tetanus is up-to-date PHYSICAL EXAMINATION: There is a wound on the posterior aspect of the right elbow. There is erythema and soft tissue swelling to the olecranon region of the elbow extending approximately 9 cm x 4 cm on the posterior aspect of the elbow no induration or fluctuant areas I have greeted and performed a rapid initial assessment of this patient. A comprehensive ED assessment and evaluation of the patient, analysis of test results and completion of medical decision making process will be conducted by an additional ED providers. TRAVEL OUTSIDE OF THE [place] IN LAST 30 DAYS: No - Related Data Allergies/Adverse Reactions: NSAIDS (Non-Steroidal Anti-Inflamma Allergy (Verified 01/14/19 01:36) Home Medications: lisinopril Past Medical History - Social History Frequency of alcohol use: None Drug Abuse: Marijuana Renal/ Medical History: Reports: Hx Kidney Stones. Denies: Hx Peritoneal Dialysis Physical Exam - Vital signs Vitals: Temp Pulse Resp BP Pulse Ox 98.0 F 80 16 142/96 H 99 09/07/19 10:18 09/07/19 10:18 09/07/19 10:18 09/07/19 10:18 09/07/19 10:18 Course - Vital Signs Vital signs: Temp Pulse Resp BP Pulse Ox 98.0 F 80 16 142/96 H 99 09/07/19 10:18 09/07/19 10:18 09/07/19 10:18 09/07/19 10:18 09/07/19 10:18
[2019-09-07 11:41] LABS: ABSOLUTE BASOPHILS # (AUTO) 0.1 10^3/uL (0.0-0.2); ABSOLUTE EOSINOPHILS # (AUTO) 0.1 10^3/uL (0.0-0.6); ABSOLUTE LYMPHOCYTES (AUTO) 1.5 10^3/uL (0.5-4.7); ABSOLUTE MONOCYTES (AUTO) 1.6 10^3/uL (0.1-1.4); ABSOLUTE NEUT (AUTO) 10.6 10^3/uL (1.7-8.2); BASOPHILS % (AUTO) 0.4 % (0-2); EOSINOPHILS % (AUTO) 0.5 % (0-6); HEMATOCRIT 44.2 % (37.9-51.0); HEMOGLOBIN 15.2 g/dL (13.5-17.0); LYMPHOCYTES % (AUTO) 10.8 % (13-45); MEAN CORPUSCULAR HEMOGLOBIN 34.5 pg (27.0-33.4); MEAN CORPUSCULAR HGB CONC 34.5 g/dL (32.0-36.0); MEAN CORPUSCULAR VOLUME 100 fl (80-97); MONOCYTES % (AUTO) 11.3 % (3-13); PLATELET COUNT 272 10^3/uL (150-450); RED BLOOD COUNT 4.41 10^6/uL (4.35-5.55); RED CELL DISTRIBUTION WIDTH 13.3 % (11.5-14.0); TOTAL CELLS COUNTED % (AUTO) 100 %; WHITE BLOOD COUNT 13.7 10^3/uL (4.0-10.5)
[2019-09-07 11:59] LABS: ALBUMIN 4.6 g/dL (3.5-5.0); ALKALINE PHOSPHATASE 139 U/L (38-126); ANION GAP 5 (5-19); ASPARTATE AMINO TRANSFERASE 25 U/L (17-59); BILIRUBIN,DIRECT 0.1 mg/dL (0.0-0.4); BILIRUBIN,TOTAL 0.7 mg/dL (0.2-1.3); BLOOD UREA NITROGEN 15 mg/dL (7-20); CALCIUM 10.2 mg/dL (8.4-10.2); CARBON DIOXIDE 28 mmol/L (22-30); CHLORIDE 103 mmol/L (98-107); GLUCOSE 97 mg/dL (75-110); POTASSIUM 4.8 mmol/L (3.6-5.0); TOTAL PROTEIN 7.7 g/dL (6.3-8.2)
[2019-09-07] MEDS ORDERED: ONDANSETRON HCL INJ/PF 4 MG/2 ML SDV IV ONE ×2 (12:12→15:04)
--- NOTE | 2019-09-07 12:57 | ER Document Report ---
Entered by BIN SANTIZO SCRIBE 09/07/19 1243 Acting as scribe for:OLGA MCDANIEL MD ED Extremity Problem, Upper - General Chief Complaint: Arm Problem Stated Complaint: RIGHT ELBOW INJURY Time Seen by Provider: 09/07/19 10:56 Mode of Arrival: Ambulatory Information source: Patient Notes: This 28 year old male patient presents to the emergency department today with complaints of right elbow pain. Patient reports that two days ago he was stripping wires and he pulled back and his right posterior elbow slammed into a 2" x 6" joist. Patient reports that his arm tingled a little bit but did not really hurt all that bad until later that evening. Patients right elbow is grossly swollen and erythematous. There are no open wounds. TRAVEL OUTSIDE OF THE [place] IN LAST 30 DAYS: No - Related Data Allergies/Adverse Reactions: NSAIDS (Non-Steroidal Anti-Inflamma Allergy (Verified 09/07/19 12:51) Home Medications: lisinopril Past Medical History - General Information source: Patient - Social History Smoking Status: Current Every Day Smoker Cigarette use (# per day): Yes - 1/2 pack per week Frequency of alcohol use: Heavy use in the past. Sober for x1.5 months Drug Abuse: Marijuana Lives with: Family Family History: Reviewed & Not Pertinent Renal/ Medical History: Reports: Hx Kidney Stones Surgical Hx: Negative Review of Systems - Review of Systems Constitutional: No symptoms reported EENT: No symptoms reported Cardiovascular: No symptoms reported Respiratory: No symptoms reported Gastrointestinal: No symptoms reported Genitourinary: No symptoms reported Male Genitourinary: No symptoms reported Musculoskeletal: See HPI, Joint pain - right elbow Skin: No symptoms reported Hematologic/Lymphatic: No symptoms reported Neurological/Psychological: No symptoms reported -: Yes All other systems reviewed and negative Physical Exam - Vital signs Vitals: Temp Pulse Resp BP Pulse Ox 98.0 F 80 16 142/96 H 99 09/07/19 10:18 09/07/19 10:18 09/07/19 10:18 09/07/19 10:18 09/07/19 10:18 Interpretation: Normal - General General appearance: Appears well, Alert In distress: None - HEENT Head: Normocephalic, Atraumatic Eyes: Normal Pupils: PERRL - Respiratory Respiratory status: No respiratory distress - Cardiovascular Rhythm: Regular - Abdominal Inspection: Normal - Back Back: Normal - Extremities General upper extremity: Other - The left elbow is grossly swollen with some erythema. It is warm to touch. There is an abrasion and the skin about 5 cm above the olecranon. There is no olecranon bursa swelling. Most of the swelling is noted in the anconeus muscle region and the proximal aspect of the extensor carpi radialis longus muscle and brachial radialis muscle in the proximal forearm just distal to the lateral humeral epicondyle. General lower extremity: Normal inspection - Neurological Neuro grossly intact: Yes - Psychological Associated symptoms: Normal affect, Normal mood - Skin Skin Temperature: Warm Skin Moisture: Dry Skin Color: Normal Course - Re-evaluation Re-evalutation: 09/07/19 15:00 And discussing NSAIDs with the patient, he relates an episode of rectal bleeding at about age 14 due to Motrin, on further questioning, he does admit that he was abusing Goody powders pretty extensively at that time and agrees that that was the most likely reason for his problem. He recognizes that NSAIDs taken appropriately would be safe. I am going to give him Toradol IV to help with the inflammation and pain in his elbow. - Vital Signs Vital signs: Temp Pulse Resp BP Pulse Ox 98.0 F 80 16 142/96 H 99 09/07/19 10:18 09/07/19 10:18 09/07/19 10:18 09/07/19 10:18 09/07/19 10:18 - Laboratory Result Diagrams: 09/07/19 11:07 09/07/19 11:07 Laboratory results interpreted by me: 09/07/19 09/07/19 11:07 11:07 WBC 13.7 H MCV 100 H MCH 34.5 H Lymph % (Auto) 10.8 L Absolute Neuts (auto) 10.6 H Absolute Monos (auto) 1.6 H Sodium 135.9 L Alkaline Phosphatase 139 H - Diagnostic Test Radiology reviewed: Image reviewed, Reports reviewed - CT scan shows moderate edema and stranding in the posterior soft tissues over the elbow. No abscess formation. - Consults Dr. Jane Time consulted: 15:00 Consulted provider: will come to ER Discharge - Discharge Clinical Impression: Cellulitis of right elbow Condition: Stable Disposition: ADMITTED INPATIENT Admitting Provider: Lucinda (Hospitalist) Unit Admitted: Medical Floor I personally performed the services described in the documentation, reviewed and edited the documentation which was dictated to the scribe in my presence, and it accurately records my words and actions.
--- NOTE | 2019-09-07 14:12 | RADIOLOGY REPORT (SQ) ---
EXAM DESCRIPTION: CT RT UPPER EXTREMITY WITH IMAGES COMPLETED DATE/TIME: 09/07/2019 1:59 pm REASON FOR STUDY: R elbow trauma w/ pain, red, swelling COMPARISON: None. TECHNIQUE: Postcontrast axial imaging performed through the right elbow with reformatted coronal and sagittal imaging windowed for bone and soft tissues. Images saved to PACS. 3D IMAGING: Were 3D images as MIP, SSD, or volume rendering performed at the work station? No All CT scanners at this facility use dose modulation, iterative reconstruction, and/or weight based d osing when appropriate to reduce radiation dose to as low as reasonably achievable (ALARA). [facility]: Dose Right [facility]: CareDose [facility]: Dose Right [facility]: Teradose 4D [facility]: DGP Labs CONTRAST TYPE AND DOSE: contrast/concentration: Omnipaque 350.00 mmol/ml; Total Contrast Delivered: 50.0 ml; Total Saline Delivered: 59.9 ml RENAL FUNCTION: BUN 15; creatinine 0.90 LIMITATIONS: None. RADIATION DOSE: CT Rad equipment meets quality standard of care and radiation dose reduction techniq ues were employed. CTDIvol: 2.6 mGy. DLP: 40 mGy-cm.mGy. FINDINGS: SOFT TISSUES: There is edema and stranding in the posterior soft tissues over the elbow. No focal or rim enhancing collection. BONES: No acute fracture. No dislocation. MINERALIZATION: Normal. ENHANCEMENT: No abnormal enhancement. OTHER: No other significant finding. IMPRESSION: Moderate edema in the posterior soft tissues over the elbow without evidence for abscess formation. No underlying osseous abnormality. TECHNICAL DOCUMENTATION: JOB ID: [id number] Quality ID # [id number]: Final reports with documentation of one or more dose reduction techniques (e.g., Au tomated exposure control, adjustment of the mA and/or kV according to patient size, use of iterative reconstruction technique) 2010 [employer]- All Rights Reserved EXAM PARAMETERS: TECHNIQUE:Axial imaging performed through the right elbow with reformatted coronal and sagittal imaging windowed for bone and soft tissues. Images saved to PACS. 3D IMAGING: Were 3D images as MIP, SSD, or volume rendering performed at the work station? No Reading location - IP/workstation name: [facility]
[2019-09-07] MEDS ORDERED: KETOROLAC TROMETHAMINE INJ/PF 30 MG/1 ML SDV IV ONE (14:41)
[2019-09-07] MEDS ORDERED: VANCOMYCIN HCL INJ 1000 MG VIAL IV ONE (14:48)
[2019-09-07] MEDS ORDERED: IPRATROPIUM/ALBUTEROL 0.5-2.5 MG/3 ML AMPUL NEB PRN (15:28)
[2019-09-07] MEDS ORDERED: PROMETHAZINE HCL INJ 25 MG/1 ML VIAL IV PRN (15:28)
[2019-09-07] MEDS ORDERED: ACETAMINOPHEN 325 MG TABLET PO PRN (15:28)
[2019-09-07] MEDS ORDERED: VANCOMYCIN HCL 0 MG in DEXTROSE 5%-WATER 250 ML IV NR (15:45)
--- NOTE | 2019-09-07 16:42 | PDOC H&P ---
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 Patient stated 2 days ago he was stripping some wires and pulled back his right elbow and it slammed into 2 x 6. Patient did not notice any cut or abrasion, but the following day he noticed that his elbow swelling and becoming erythematous and was hard for him to move, patient denies any fever, discharge, previous history of cellulitis, diabetes, IV drug abuse. In ED he was noted to have leukocytosis and CT right upper extremity showed diffuse swelling and cellulitis with no sign of osteomyelitis or abscess. Patient denies any shortness of breath, chest pain, nausea, vomiting, diarrhea, constipation or any urinary symptoms. Social History Lives with: Family Smoking Status: Current Every Day Smoker Family History Family History: Reviewed & Not Pertinent Parental Family History Reviewed: Yes Children Family History Reviewed: Yes Sibling(s) Family History Reviewed.: Yes Medication/Allergy Home Medications: Lisinopril [Prinivil] 5 mg PO DAILY 09/07/19 Allergies/Adverse Reactions: NSAIDS (Non-Steroidal Anti-Inflamma Allergy (Verified 09/07/19 12:51) Review of Systems Review of Systems: as per hpi Physical Exam Vital Signs: Temp Pulse Resp BP Pulse Ox 98.0 F 80 16 142/96 H 99 09/07/19 10:18 09/07/19 10:18 09/07/19 10:18 09/07/19 10:18 09/07/19 10:18 Intake & Output 09/06/19 09/07/19 09/08/19 06:59 06:59 06:59 Intake Total 50 Balance 50 Weight 56.8 kg General appearance: PRESENT: no acute distress, well-developed, well-nourished Head exam: PRESENT: atraumatic, normocephalic Eye exam: PRESENT: conjunctiva pink, EOMI, PERRLA. ABSENT: scleral icterus Ear exam: PRESENT: normal external ear exam Mouth exam: PRESENT: moist, tongue midline Neck exam: ABSENT: carotid bruit, JVD, lymphadenopathy, thyromegaly Respiratory exam: PRESENT: clear to auscultation zoe. ABSENT: rales, rhonchi, wheezes Cardiovascular exam: PRESENT: RRR. ABSENT: diastolic murmur, rubs, systolic murmur Pulses: PRESENT: normal dorsalis pedis pul Vascular exam: PRESENT: normal capillary refill GI/Abdominal exam: PRESENT: normal bowel sounds, soft. ABSENT: distended, guarding, mass, organolmegaly, rebound, tenderness Rectal exam: PRESENT: deferred Extremities exam: PRESENT: full ROM, joint swelling, tenderness, other - Right atrial diffuse swelling with erythema and abrasion and scab at the posterior elbow, range of motion limited by pain, neurovascularly intact.. ABSENT: calf tenderness, clubbing, pedal edema Neurological exam: PRESENT: alert, awake, oriented to person, oriented to place, oriented to time, oriented to situation, CN II-XII grossly intact. ABSENT: motor sensory deficit Psychiatric exam: PRESENT: appropriate affect, normal mood. ABSENT: homicidal ideation, suicidal ideation Skin exam: PRESENT: dry, intact, warm. ABSENT: cyanosis, rash Results Laboratory Results: 09/07/19 11:07 09/07/19 11:07 09/07/19 09/07/19 11:07 11:07 WBC 13.7 H RBC 4.41 Hgb 15.2 Hct 44.2 MCV 100 H MCH 34.5 H MCHC 34.5 RDW 13.3 Plt Count 272 Seg Neutrophils % 77.0 Sodium 135.9 L Potassium 4.8 Chloride 103 Carbon Dioxide 28 Anion Gap 5 BUN 15 Creatinine 0.90 Est GFR ( Amer) > 60 Glucose 97 Calcium 10.2 Total Bilirubin 0.7 AST 25 Alkaline Phosphatase 139 H Total Protein 7.7 Albumin 4.6 Impressions: Upper Extremity CT 09/07/19 12:39 IMPRESSION: Moderate edema in the posterior soft tissues over the elbow without evidence for abscess formation. No underlying osseous abnormality. Assessment and Plan - Diagnosis (1) Cellulitis of right elbow Is this a current diagnosis for this admission?: Yes Plan: Denies any history of diabetes. Denies any history of IV drug abuse. CT right upper extremity negative for any collection or osteomyelitis. Admit to floor, broad-spectrum empiric IV antibiotics. Blood culture. Will transition to p.o. antibiotics if improvement if not we will consult surgery. (2) Tobacco abuse Is this a current diagnosis for this admission?: Yes Plan: Counseled on quitting. NicoDerm patch will be provided. (3) History of alcohol abuse Is this a current diagnosis for this admission?: Yes Plan: History of daily alcohol abuse. Has been sober for 1 and 1/2 months. - Time Time Spent with patient: 25-34 minutes Medications reviewed and adjusted accordingly: Yes Anticipated Discharge Disposition: Home, Self Care Anticipated Discharge Timeframe: within 24 hours
[2019-09-07] MEDS: OXYCODONE-ACETAMINOPHEN 5-325 MG TABLET PO PRN ×2 (16:54→21:38)
[2019-09-07] MEDS: RINGERS SOLUTION,LACTATED 1,000 ML IV PRN (18:25)
[2019-09-07] MEDS ORDERED: NICOTINE 21 MG/24 HR PATCH.TD24 TD ONE (20:15)
[2019-09-07] MEDS ORDERED: HYDRALAZINE HCL INJ/PF 20 MG/1 ML SDV ONE (21:32)
[2019-09-07] MEDS: FAMOTIDINE 20 MG TABLET PO SCH (21:37)
[2019-09-07] MEDS: HYDRALAZINE HCL INJ/PF 20 MG/1 ML SDV IV PRN (21:37)
[2019-09-07] MEDS ORDERED: LISINOPRIL 5 MG TABLET PO ONE (21:45)
[2019-09-07] MEDS: ONDANSETRON HCL INJ/PF 4 MG/2 ML SDV IV PRN (23:09)
[2019-09-08] MEDS: OXYCODONE-ACETAMINOPHEN 5-325 MG TABLET PO PRN ×4 (03:10→23:06)
[2019-09-08 05:32] LABS: ABSOLUTE LYMPHOCYTES (AUTO) 0.7 10^3/uL (0.5-4.7); ABSOLUTE MONOCYTES (AUTO) 1.3 10^3/uL (0.1-1.4); ABSOLUTE NEUT (AUTO) 11.9 10^3/uL (1.7-8.2); BASOPHILS % (AUTO) 0.3 % (0-2); EOSINOPHILS % (AUTO) 0.1 % (0-6); HEMATOCRIT 41.6 % (37.9-51.0); HEMOGLOBIN 14.4 g/dL (13.5-17.0); LYMPHOCYTES % (AUTO) 5.2 % (13-45); MEAN CORPUSCULAR HEMOGLOBIN 34.5 pg (27.0-33.4); MEAN CORPUSCULAR HGB CONC 34.6 g/dL (32.0-36.0); MEAN CORPUSCULAR VOLUME 100 fl (80-97); MONOCYTES % (AUTO) 9.1 % (3-13); PLATELET COUNT 232 10^3/uL (150-450); RED BLOOD COUNT 4.17 10^6/uL (4.35-5.55); RED CELL DISTRIBUTION WIDTH 12.9 % (11.5-14.0); SEGMENTED NEUTROPHILS % (AUTO) 85.3 % (42-78); TOTAL CELLS COUNTED % (AUTO) 100 %
[2019-09-08 05:55] LABS: ANION GAP 6 (5-19); BLOOD UREA NITROGEN 11 mg/dL (7-20); CALCIUM 9.4 mg/dL (8.4-10.2); CARBON DIOXIDE 25 mmol/L (22-30); CHLORIDE 105 mmol/L (98-107); GLUCOSE 108 mg/dL (75-110); POTASSIUM 4.3 mmol/L (3.6-5.0)
[2019-09-08] MEDS: VANCOMYCIN HCL 1,000 MG in DEXTROSE 5%-WATER 250 ML IV SCH ×2 (06:17→17:20)
[2019-09-08] MEDS: ONDANSETRON HCL INJ/PF 4 MG/2 ML SDV IV PRN ×2 (08:26→20:48)
[2019-09-08] MEDS: RINGERS SOLUTION,LACTATED 1,000 ML IV PRN (08:28)
[2019-09-08] MEDS ORDERED: LISINOPRIL 5 MG TABLET PO SCH (10:00)
[2019-09-08] MEDS ORDERED: CEFTRIAXONE 1 GM/D5W RTU 1 GM/50 ML RTUPB IV SCH (10:00)
[2019-09-08] MEDS ORDERED: KETOROLAC TROMETHAMINE INJ/PF 30 MG/1 ML SDV ONE (10:17)
[2019-09-08] MEDS: ENOXAPARIN SODIUM INJ 40 MG/0.4 ML DISP.SYRIN SUBCUT SCH (10:23)
[2019-09-08] MEDS: FAMOTIDINE 20 MG TABLET PO SCH ×2 (10:32→23:06)
[2019-09-08] MEDS: NICOTINE 21 MG/24 HR PATCH.TD24 TD SCH (10:32)
--- NOTE | 2019-09-08 13:28 | PDOC PROGRESS REPORT ---
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 Patient stated 2 days ago he was stripping some wires and pulled back his right elbow and it slammed into 2 x 6. Patient did not notice any cut or abrasion, but the following day he noticed that his elbow swelling and becoming erythematous and was hard for him to move, patient denies any fever, discharge, previous history of cellulitis, diabetes, IV drug abuse. In ED he was noted to have leukocytosis and CT right upper extremity showed diffuse swelling and cellulitis with no sign of osteomyelitis or abscess. Patient denies any shortness of breath, chest pain, nausea, vomiting, diarrhea, constipation or any urinary symptoms. 09/08/2019. No acute events overnight. Patient still complaining of right elbow pain, no significant pain compared to yesterday, denies any fever, chills, nausea, vomiting, diarrhea, constipation or any urinary symptoms. Reason For Visit: RIGHT UPPER EXTREMITY CELLULITIS Physical Exam Vital Signs: Temp Pulse Resp BP Pulse Ox 97.5 F 100 12 133/86 H 100 09/08/19 10:35 09/08/19 10:35 09/08/19 10:35 09/08/19 10:35 09/08/19 10:35 Intake & Output 09/07/19 09/08/19 09/09/19 06:59 06:59 06:59 Intake Total 1490 660 Balance 1490 660 Weight 56.1 kg General appearance: PRESENT: no acute distress, well-developed, well-nourished Head exam: PRESENT: atraumatic, normocephalic Respiratory exam: PRESENT: clear to auscultation zoe. ABSENT: rales, rhonchi, wheezes Cardiovascular exam: PRESENT: RRR. ABSENT: diastolic murmur, rubs, systolic murmur GI/Abdominal exam: PRESENT: normal bowel sounds, soft. ABSENT: distended, gua rding, mass, organolmegaly, rebound, tenderness Extremities exam: PRESENT: full ROM, joint swelling, tenderness, other - Right elbow circumferential swelling, limited range of motion due to pain, erythema and tenderness. No active discharge. Neurovascularly intact.. ABSENT: calf tenderness, clubbing, pedal edema Results Laboratory Results: 09/08/19 04:36 09/08/19 04:36 09/07/19 09/08/19 09/08/19 11:07 04:36 04:36 WBC 14.0 H RBC 4.17 L Hgb 14.4 Hct 41.6 MCV 100 H MCH 34.5 H MCHC 34.6 RDW 12.9 Plt Count 232 Seg Neutrophils % 85.3 H Sodium 135.7 L Potassium 4.3 Chloride 105 Carbon Dioxide 25 Anion Gap 6 BUN 11 Creatinine 0.82 Est GFR ( Amer) > 60 Glucose 108 Calcium 9.4 Magnesium 1.9 C-Reactive Protein 22.9 H Impressions: Upper Extremity CT 09/07/19 12:39 IMPRESSION: Moderate edema in the posterior soft tissues over the elbow without evidence for abscess formation. No underlying osseous abnormality. Assessment and Plan - Diagnosis (1) Cellulitis of right elbow Is this a current diagnosis for this admission?: Yes Plan: Significant improvement. Denies any history of IV drug abuse. CT right upper extremity negative for any collection or osteomyelitis. Hemoglobin A1c WNL. Day 2 IV antibiotics. Day 2 IV vancomycin. Day 1 IV ceftriaxone. Continue broad-spectrum empiric IV antibiotics. Blood culture. Will transition to p.o. antibiotics if improvement if not we will consult surgery. (2) Tobacco abuse Is this a current diagnosis for this admission?: Yes Plan: Counseled on quitting. NicoDerm patch will be provided. (3) History of alcohol abuse Is this a current diagnosis for this admission?: Yes Plan: History of daily alcohol abuse. Has been sober for 1 and 1/2 months. - Time Time Spent with patient: 15-24 minutes Medications reviewed and adjusted accordingly: Yes Anticipated Discharge Disposition: Home, Self Care Anticipated Discharge Timeframe: within 36 hours
[2019-09-08] MEDS: KETOROLAC TROMETHAMINE INJ/PF 30 MG/1 ML SDV IV PRN (15:54)
[2019-09-08] MEDS: MORPHINE SULFATE 10 MG/ML INJ IV PRN (20:42)
[2019-09-08] MEDS: HYDRALAZINE HCL INJ/PF 20 MG/1 ML SDV IV PRN (20:47)
[2019-09-08] MEDS: CEFEPIME 1 GM/D5W RTU 1 GM/50 ML RTUPB IV SCH (23:05)
[2019-09-09] MEDS: HYDRALAZINE HCL INJ/PF 20 MG/1 ML SDV IV PRN (00:05)
[2019-09-09] MEDS: MORPHINE SULFATE 10 MG/ML INJ IV PRN ×2 (01:01→10:18)
[2019-09-09] MEDS: RINGERS SOLUTION,LACTATED 1,000 ML IV PRN (01:14)
[2019-09-09] MEDS: ONDANSETRON HCL INJ/PF 4 MG/2 ML SDV IV PRN ×3 (01:15→11:58)
[2019-09-09] MEDS: KETOROLAC TROMETHAMINE INJ/PF 30 MG/1 ML SDV IV PRN (05:59)
[2019-09-09] MEDS: VANCOMYCIN HCL 1,000 MG in DEXTROSE 5%-WATER 250 ML IV SCH (05:59)
[2019-09-09 06:18] LABS: VANCOMYCIN,TROUGH 6.9 ug/mL (5.0-20.0)
[2019-09-09] MEDS: OXYCODONE-ACETAMINOPHEN 5-325 MG TABLET PO PRN ×2 (07:54→11:57)
[2019-09-09 08:43] LABS: ABSOLUTE BASOPHILS # (AUTO) 0.1 10^3/uL (0.0-0.2); ABSOLUTE LYMPHOCYTES (AUTO) 0.9 10^3/uL (0.5-4.7); ABSOLUTE MONOCYTES (AUTO) 1.3 10^3/uL (0.1-1.4); BASOPHILS % (AUTO) 0.6 % (0-2); EOSINOPHILS % (AUTO) 0.4 % (0-6); HEMATOCRIT 40.7 % (37.9-51.0); HEMOGLOBIN 13.8 g/dL (13.5-17.0); LYMPHOCYTES % (AUTO) 6.8 % (13-45); MEAN CORPUSCULAR HEMOGLOBIN 34.3 pg (27.0-33.4); MEAN CORPUSCULAR VOLUME 101 fl (80-97); MONOCYTES % (AUTO) 9.9 % (3-13); PLATELET COUNT 237 10^3/uL (150-450); RED BLOOD COUNT 4.02 10^6/uL (4.35-5.55); SEGMENTED NEUTROPHILS % (AUTO) 82.3 % (42-78); TOTAL CELLS COUNTED % (AUTO) 100 %; WHITE BLOOD COUNT 13.4 10^3/uL (4.0-10.5)
[2019-09-09] MEDS ORDERED: LISINOPRIL 5 MG TABLET PO SCH (10:00)
[2019-09-09] MEDS: CEFEPIME 1 GM/D5W RTU 1 GM/50 ML RTUPB IV SCH (10:13)
[2019-09-09] MEDS: NICOTINE 21 MG/24 HR PATCH.TD24 TD SCH (10:14)
[2019-09-09] MEDS: ENOXAPARIN SODIUM INJ 40 MG/0.4 ML DISP.SYRIN SUBCUT SCH (10:24)
--- NOTE | 2019-09-09 11:42 | PDOC CONSULTATION ---
Consultation Consult Date: 09/09/19 Attending physician:: SAMSON OCAMPO Provider Consulted: LITA VALLE Consult reason:: right elbow abscess History of Present Illness Admission Date/PCP: 09/07/19 16:19 History of Present Illness: STUART VALENCIA is a 28 year old male This 28 year old male patient presents to the emergency department today with complaints of right elbow pain. Patient reports that two days ago he was stripping wires and he pulled back and his right posterior elbow slammed into a 2" x 6" joist. Patient reports that his arm tingled a little bit but did not really hurt all that bad until later that evening. Patients right elbow is grossly swollen and erythematous. There are no open wounds pt has been admitted for 3 ddays on iv abx with resolving cellulitis, but still some fluctulence of rt elbow Past Medical History Psychiatric Medical History: Denies: Depression Social History Lives with: Family Smoking Status: Current Every Day Smoker Cigarettes Packs Per Day: 0.5 Electronic Cigarette use?: No Frequency of Alcohol Use: None Hx Recreational Drug Use: No Drugs: Marijuana Hx Prescription Drug Abuse: No Family History Family History: Reviewed & Not Pertinent Parental Family History Reviewed: No Children Family History Reviewed: NA Sibling(s) Family History Reviewed.: NA Medication/Allergy Home Medications: Lisinopril [Prinivil] 5 mg PO DAILY 09/07/19 Allergies/Adverse Reactions: NSAIDS (Non-Steroidal Anti-Inflamma Allergy (Verified 09/07/19 12:51) Review of Systems Constitutional: PRESENT: as per HPI. ABSENT: anorexia, chills, fatigue, fev er(s), headache(s), night sweats, weakness, weight gain, weight loss, other Eyes: ABSENT: as per HPI, visual disturbances, other Ears: ABSENT: as per HPI, hearing changes, other Nose, Mouth, and Throat: ABSENT: as per HPI, headache(s), mouth pain, sore throat, vertigo, other Breasts: ABSENT: as per HPI, other Cardiovascular: ABSENT: as per HPI, chest pain, dyspnea on exertion, edema, orthropnea, palpitations, other Respiratory: ABSENT: as per HPI, cough, dyspnea, hemoptysis, sputum, other Gastrointestinal: ABSENT: as per HPI, abdominal pain, bloating, coffee ground emesis, constipation, diarrhea, dysphagia, heartburn, hematemesis, hematochezia, melena, nausea, vomiting, other Genitourinary: ABSENT: as per HPI, difficulty urinating, dysuria, hematuria, nocturia, other Musculoskeletal: PRESENT: joint swelling Integumentary: ABSENT: as per HPI, diaphoresis, erythema, lesions, pruritus, rash, wounds, other Psychiatric: ABSENT: as per HPI, anxiety, depression, hallucinations, homidical ideation, suicidal ideation, other Endocrine: ABSENT: as per HPI, cold intolerance, flushing, heat intolerance, menstrual abnormalities, polydipsia, polyphagia, polyuria, other Hematologic/Lymphatic: ABSENT: as per HPI, easy bleeding, easy bruising, lymphadenopathy, other Allergic/Immunologic: ABSENT: as per HPI, seasonal rhinorrhea, other Physical Exam Vital Signs: Temp Pulse Resp BP Pulse Ox 98.7 F 99 16 135/80 H 100 09/09/19 07:41 09/09/19 08:32 09/09/19 08:32 09/09/19 07:41 09/09/19 08:32 Intake & Output 09/08/19 09/09/19 09/10/19 06:59 06:59 06:59 Intake Total 1490 2080 300 Balance 1490 2080 300 Weight 56.1 kg 56.1 kg General appearance: PRESENT: no acute distress Head exam: PRESENT: normocephalic Eye exam: PRESENT: EOMI Ear exam: PRESENT: normal external ear exam Mouth exam: PRESENT: moist Teeth exam: PRESENT: poor dentation Neck exam: PRESENT: full ROM Respiratory exam: PRESENT: clear to auscultation zoe Cardiovascular exam: PRESENT: RRR Pulses: PRESENT: +2 pedal pulses bilateral Breast: PRESENT: Normal GI/Abdominal exam: PRESENT: soft Rectal exam: PRESENT: deferred Extremities exam: PRESENT: other - Over the right elbow there is approximately a 3 cm fluctuant area with some cellulitis Neurological exam: PRESENT: alert, awake, oriented to place Psychiatric exam: PRESENT: appropriate affect Skin exam: PRESENT: dry Results Laboratory Results: 09/09/19 05:34 09/08/19 04:36 09/09/19 05:34 WBC 13.4 H RBC 4.02 L Hgb 13.8 Hct 40.7 MCV 101 H MCH 34.3 H MCHC 34.0 RDW 13.0 Plt Count 237 Seg Neutrophils % 82.3 H Impressions: Upper Extremity CT 09/07/19 12:39 IMPRESSION: Moderate edema in the posterior soft tissues over the elbow without evidence for abscess formation. No underlying osseous abnormality. Assessment & Plan - Plan Summary Plan Summary: impression right elbow soft tissue abscess Plan we will perform incision and drainage of right elbow abscess
--- NOTE | 2019-09-09 11:44 | Operative Report ---
Nonrecallable Operative Report DATE OF SURGERY: 09/09/19 PREOPERATIVE DIAGNOSIS: Right elbow abscess POSTOPERATIVE DIAGNOSIS: Right elbow abscess OPERATION: Incision and drainage of right elbow abscess SURGEON: LITA VALLE ANESTHESIA: Local TISSUE REMOVED OR ALTERED: Approximately 10 cc of pus drained COMPLICATIONS: None ESTIMATED BLOOD LOSS: 5 cc INTRAOPERATIVE FINDINGS: See note PROCEDURE: Procedure was performed in the patient's hospital room in the hospital bed. The right arm was prepped and draped in usual sterile fashion after appropriate timeout site verification the procedure commenced. Using 1% lidocaine plain the area over the olecranon was anesthetized with approximately 5 cc of 1% lidocaine. After adequate prep and drape using an 11 blade a small 1 cm incision was made transversely over it directly over the pointing abscess. Immediately approximately 10 cc of pus drained quickly and it was sent for C&S and Gram stain. The wound was then packed with iodoform gauze and a sterile dressing applied which completed the procedure. Estimated blood loss was less than 10 cc sponge and needle counts correct x2.
[2019-09-09] MEDS: FAMOTIDINE 20 MG TABLET PO SCH (11:52)
[2019-09-09 12:09] VITALS: BP 151/106
--- NOTE | 2019-09-12 15:07 | PDOC DISCHARGE SUMMARY ---
Impression - Admit/DC Date/PCP Admission Date/Primary Care Provider: 09/07/19 16:19 Discharge Date: 09/12/19 - Discharge Diagnosis (1) Abscess of right elbow Is this a current diagnosis for this admission?: Yes (2) Cellulitis of right elbow Is this a current diagnosis for this admission?: Yes (3) Tobacco abuse Is this a current diagnosis for this admission?: Yes (4) History of alcohol abuse Is this a current diagnosis for this admission?: Yes - Additional Information Discharge Diet: As Tolerated Discharge Activity: Activity As Tolerated, Balance Activity w/Rest Referrals: [facility] [Outside] Prescriptions: Clindamycin HCl [Cleocin HCl] 150 mg PO Q8 7 Days #21 capsule Oxycodone HCl/Acetaminophen [Percocet 5-325 mg Tablet] 1 tab PO Q8 PRN 4 Days #12 tab PRN Reason: Promethazine HCl [Phenergan 25 mg Tablet] 25 mg PO Q8 5 Days #15 tablet Home Medications: Lisinopril [Prinivil] 5 mg PO DAILY 09/07/19 Oxycodone HCl/Acetaminophen [Percocet 5-325 mg Tablet] 1 tab PO Q8 PRN 4 Days #12 tab 09/09/19 Promethazine HCl [Phenergan 25 mg Tablet] 25 mg PO Q8 5 Days #15 tablet 09/09/19 Clindamycin HCl [Cleocin HCl] 150 mg PO Q8 7 Days #21 capsule 09/11/19 History of Present Illiness History of Present Illness: STUART VALENCIA is a 28 year old male 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 Patient stated 2 days ago he was stripping some wires and pulled back his right elbow and it slammed into 2 x 6. Patient did not notice any cut or abrasion, but the following day he noticed that his elbow swelling and becoming erythematous and was hard for him to move, patient denies any fever, discharge, previous history of cellulitis, diabetes, IV drug abuse. In ED he was noted to have leukocytosis and CT right upper extremity showed diffuse swelling and cellulitis with no sign of osteomyelitis or abscess. Joshua cobos denies any shortness of breath, chest pain, nausea, vomiting, diarrhea, constipation or any urinary symptoms. Hospital Course Hospital Course: (1) Abscess of right elbow Due to MRSA. Initially thought to be simple cellulitis however after no significant improvement on second day surgery was consulted and patient was noted to have an abscess which was I&D by surgery. Initially was placed on vancomycin and ceftriaxone and then ceftriaxone was switched to cefepime as there was no clinical improvement. After I&D of abscess patient was DC'd on ciprofloxacin as per surgery recommendation. Following day wound culture result came back positive for MRSA. I sent another prescription for patient for clindamycin 150 mg p.o. 3 times daily for another week. I called patient and informed him of the diagnosis and he voiced understanding. He will call me back that he picked up the antibiotics. (2) Cellulitis of right elbow Due to MRSA. Was admitted to floor and will start on empiric IV antibiotics. Denied any history of IV drug abuse. Hemoglobin A1c WNL. CT right upper extremity negative for any collection or osteomyelitis. Received 3 days of IV antibiotics. Received 3 days of IV vancomycin. Is received 1 day of IV ceftriaxone. Received 2 days of IV cefepime. (3) Tobacco abuse Extensively advised quitting. (4) History of alcohol abuse Former heavy alcohol abuser, has been sober for the last 1 and half months. Physical Exam Vital Signs: Temp Pulse Resp BP Pulse Ox 98.7 F 99 16 151/96 H 100 09/09/19 11:56 09/09/19 11:56 09/09/19 11:56 09/09/19 11:56 09/09/19 11:56 General appearance: PRESENT: no acute distress, well-developed, well-nourished Head exam: PRESENT: atraumatic, normocephalic Respiratory exam: PRESENT: clear to auscultation zoe. ABSENT: rales, rhonchi, wheezes Cardiovascular exam: PRESENT: RRR. ABSENT: diastolic murmur, rubs, systolic murmur GI/Abdominal exam: PRESENT: normal bowel sounds, soft. ABSENT: distended, guarding, mass, organolmegaly, rebound, tenderness Gentrourinary exam: PRESENT: other - Right elbow swelling and tenderness is improved, status post I&D, packing in place, wound clean. Pulses intact, neurovascular intact. Neurological exam: PRESENT: alert, awake, oriented to person, oriented to place, oriented to time, oriented to situation, CN II-XII grossly intact. ABSENT: motor sensory deficit Results Laboratory Results: WBC 13.4 10^3/uL (4.0-10.5) H 09/09/19 05:34 RBC 4.02 10^6/uL (4.35-5.55) L 09/09/19 05:34 Hgb 13.8 g/dL (13.5-17.0) 09/09/19 05:34 Hct 40.7 % (37.9-51.0) 09/09/19 05:34 MCV 101 fl (80-97) H 09/09/19 05:34 MCH 34.3 pg (27.0-33.4) H 09/09/19 05:34 MCHC 34.0 g/dL (32.0-36.0) 09/09/19 05:34 RDW 13.0 % (11.5-14.0) 09/09/19 05:34 Plt Count 237 10^3/uL (150-450) 09/09/19 05:34 Lymph % (Auto) 6.8 % (13-45) L 09/09/19 05:34 [place] % (Auto) 9.9 % (3-13) 09/09/19 05:34 Eos % (Auto) 0.4 % (0-6) 09/09/19 05:34 Baso % (Auto) 0.6 % (0-2) 09/09/19 05:34 Absolute Neuts (auto) 11.0 10^3/uL (1.7-8.2) H 09/09/19 05:34 Absolute Lymphs (auto) 0.9 10^3/uL (0.5-4.7) 09/09/19 05:34 Absolute Monos (auto) 1.3 10^3/uL (0.1-1.4) 09/09/19 05:34 Absolute Eos (auto) 0.0 10^3/uL (0.0-0.6) 09/09/19 05:34 Absolute Basos (auto) 0.1 10^3/uL (0.0-0.2) 09/09/19 05:34 Seg Neutrophils % 82.3 % (42-78) H 09/09/19 05:34 ESR 10 mm/hr (0-15) 09/07/19 17:27 Sodium 135.7 mmol/L (137-145) L 09/08/19 04:36 Potassium 4.3 mmol/L (3.6-5.0) 09/08/19 04:36 Chloride 105 mmol/L (98-107) 09/08/19 04:36 Carbon Dioxide 25 mmol/L (22-30) 09/08/19 04:36 Anion Gap 6 (5-19) 09/08/19 04:36 BUN 11 mg/dL (7-20) 09/08/19 04:36 Creatinine 0.82 mg/dL (0.52-1.25) 09/08/19 04:36 Est GFR ( Amer) > 60 (>60) 09/08/19 04:36 Est GFR (MDRD) Non-Af > 60 (>60) 09/08/19 04:36 Glucose 108 mg/dL (75-110) 09/08/19 04:36 Hemoglobin A1c % 4.5 % (4.7-6.0) L 09/07/19 11:07 Calcium 9.4 mg/dL (8.4-10.2) 09/08/19 04:36 Magnesium 1.9 mg/dL (1.6-2.3) 09/08/19 04:36 Total Bilirubin 0.7 mg/dL (0.2-1.3) 09/07/19 11:07 Direct Bilirubin 0.1 mg/dL (0.0-0.4) 09/07/19 11:07 Neonat Total Bilirubin Not Reportable 09/07/19 11:07 Neonat Direct Bilirubin Not Reportable 09/07/19 11:07 Neonat Indirect Bili Not Reportable 09/07/19 11:07 AST 25 U/L (17-59) 09/07/19 11:07 ALT 9 U/L (<50) 09/07/19 11:07 Alkaline Phosphatase 139 U/L (38-126) H 09/07/19 11:07 C-Reactive Protein 22.9 mg/L (<10.0) H 09/07/19 11:07 Total Protein 7.7 g/dL (6.3-8.2) 09/07/19 11:07 Albumin 4.6 g/dL (3.5-5.0) 09/07/19 11:07 Time Trough Drawn 0534 09/09/19 05:34 Vancomycin Trough 6.9 ug/mL (5.0-20.0) 09/09/19 05:34 Impressions: Upper Extremity CT 09/07/19 12:39 IMPRESSION: Moderate edema in the posterior soft tissues over the elbow without evidence for abscess formation. No underlying osseous abnormality. Stroke Is this a Stroke Patient?: No Acute Heart Failure - Is this a Heart Failure Patient?: No
== END 2019-09-09 12:22 | disposition home or self-care (01) | DRG 603 ==
LOC: ER 10:12 → EH 16:19 → 4N 17:44
PROVIDERS: ADMIT Internal Medicine; ATTEND Internal Medicine
PROC: 0J9G0ZX Drainage of Right Lower Arm Subcutaneous Tissue and Fascia, Open Approach, Diagnostic (ICD-10-PCS; principal; 2019-09-09)
DX: L02.413 Cutaneous abscess of right upper limb (principal); L03.113 Cellulitis of right upper limb; F17.210 Nicotine dependence, cigarettes, uncomplicated; B95.62 Methicillin resistant Staphylococcus aureus infection as the cause of diseases classified elsewhere; F10.10 Alcohol abuse, uncomplicated; Z88.6 Allergy status to analgesic agent; Z79.899 Other long term (current) drug therapy
CPT/HCPCS: 36415; 80048; 80053; 80202; 83036; 83735; 85025; 85652; 86140; 87040; 87070; 87075; 87077; 87186; 87205; 96365; 96375; 99285; J0360; J0692; J0696; J1650; J1885; J2270; J2405; J3010; J3370; J7060; J7120

== ENCOUNTER 2019-09-14 20:38 | Emergency (ER) | payer SELFPAY | END 2019-09-14 21:40 | disposition left against medical advice (07) | LOC: ER 20:38 | DX: Z53.21 Procedure and treatment not carried out due to patient leaving prior to being seen by health care provider (principal) ==

== ENCOUNTER 2019-10-31 21:00 | Emergency (ER) | payer SELFPAY ==
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
[2019-10-31 23:22] LABS: ABSOLUTE BASOPHILS # (AUTO) 0.1 10^3/uL (0.0-0.2); ABSOLUTE EOSINOPHILS # (AUTO) 0.1 10^3/uL (0.0-0.6); ABSOLUTE LYMPHOCYTES (AUTO) 2.1 10^3/uL (0.5-4.7); ABSOLUTE MONOCYTES (AUTO) 0.5 10^3/uL (0.1-1.4); BASOPHILS % (AUTO) 1.1 % (0-2); HEMATOCRIT 38.6 % (37.9-51.0); HEMOGLOBIN 14.2 g/dL (13.5-17.0); LYMPHOCYTES % (AUTO) 35.9 % (13-45); MEAN CORPUSCULAR HGB CONC 36.8 g/dL (32.0-36.0); MEAN CORPUSCULAR VOLUME 98 fl (80-97); MONOCYTES % (AUTO) 8.9 % (3-13); PLATELET COUNT 216 10^3/uL (150-450); RED BLOOD COUNT 3.94 10^6/uL (4.35-5.55); RED CELL DISTRIBUTION WIDTH 13.6 % (11.5-14.0); SEGMENTED NEUTROPHILS % (AUTO) 52.1 % (42-78); TOTAL CELLS COUNTED % (AUTO) 100 %; WHITE BLOOD COUNT 5.9 10^3/uL (4.0-10.5)
[2019-10-31] MEDS ORDERED: FENTANYL CITRATE INJ/PF 100 MCG/2 ML AMPUL IV PRN (23:34)
[2019-10-31 23:46] LABS: ALBUMIN 4.1 g/dL (3.5-5.0); ALKALINE PHOSPHATASE 83 U/L (38-126); ANION GAP 10 (5-19); ASPARTATE AMINO TRANSFERASE 26 U/L (17-59); BILIRUBIN,DIRECT 0.3 mg/dL (0.0-0.4); BILIRUBIN,TOTAL 0.6 mg/dL (0.2-1.3); BLOOD UREA NITROGEN 7 mg/dL (7-20); CALCIUM 9.1 mg/dL (8.4-10.2); CARBON DIOXIDE 27 mmol/L (22-30); CHLORIDE 106 mmol/L (98-107); GLUCOSE 138 mg/dL (75-110); POTASSIUM 3.4 mmol/L (3.6-5.0); TOTAL PROTEIN 6.6 g/dL (6.3-8.2)
--- NOTE | 2019-10-31 23:53 | RADIOLOGY REPORT (SQ) ---
EXAM DESCRIPTION: CT orbits without contrast CLINICAL HISTORY: 28 years Male, right eye injury with visual changes COMPARISON: None. TECHNIQUE: Axial images of the orbits were obtained without the use of intravenous contrast, with sagittal and coronal reformatted images. This exam was performed according to our departmental dose-optimization program which includes use of Automated Exposure Control, adjustment of the mA and/or kV according to patient size and/or use of iterative reconstruction technique. FINDINGS: No fracture. The orbital globes appear intact. No evidence of radiopaque foreign body within the orbits. The sinuses are clear. IMPRESSION: No radiographic abnormality of the orbits.
--- NOTE | 2019-11-01 00:09 | RADIOLOGY REPORT (SQ) ---
COMPLETED DATE/TME: 10/31/2019 22:58 EXAM: CT head without contrast. INDICATION: eye injury. TECHNIQUE: Contiguous axial CT images of the brain. Intravenous contrast: Absent. DLP 1408 mGy-cm. This exam was performed according to our departmental dose-optimization program, which includes automated exposure control, adjustment of the mA and/or kV according to patient size and/or use of iterative reconstruction technique. COMPARISON: None. FINDINGS: Subcutaneous: Unremarkable. No acute intracranial hemorrhage. No midline shift. No mass effect. Ventricles: No hydrocephalus. Shahid-white differentiation preserved. Paranasal sinuses/mastoid air cells: Visualized portions are aerated. Bones/orbits: Visualized portions are unremarkable. IMPRESSION: No acute intracranial abnormality
[2019-11-01] MEDS ORDERED: DIPH/PERTUSS(ACELL)/TETANUS VAC/PF 0.5 ML SYR (>=10YO) IM ONE (00:15)
[2019-11-01 00:41] VITALS: BP 134/100
[2019-11-01 00:41] LABS: APPEARANCE,URINE CLEAR; BILIRUBIN,URINE NEGATIVE (NEGATIVE); COLOR,URINE YELLOW; GLUCOSE, URINE NEGATIVE (NEGATIVE); KETONES,URINE NEGATIVE (NEGATIVE); LEUKOCYTE ESTERASE,URINE NEGATIVE (NEGATIVE); NITRITE,URINE NEGATIVE (NEGATIVE); PROTEIN,URINE NEGATIVE (NEGATIVE); URINE SPECIFIC GRAVITY 1.011; UROBILINOGEN,URINE NEGATIVE mg/dL (<2.0)
[2019-11-01 01:17] LABS: URINE AMPHETAMINES SCREEN NEGATIVE; URINE BARBITURATES SCREEN NEGATIVE; URINE BENZODIAZEPINES SCREEN NEGATIVE; URINE COCAINE SCREEN NEGATIVE; URINE METHADONE SCREEN NEGATIVE; URINE PHENCYCLIDINE SCREEN NEGATIVE
[2019-11-01 01:20] LABS: URINE MARIJUANA (THC) SCREEN UNCONFIRMED POSITIVE
== END 2019-11-01 00:54 | disposition home or self-care (01) ==
LOC: ER 21:00
DX: S05.41XA Penetrating wound of orbit with or without foreign body, right eye, initial encounter (principal); H53.8 Other visual disturbances; W22.8XXA Striking against or struck by other objects, initial encounter; I10 Essential (primary) hypertension; F32.9 Major depressive disorder, single episode, unspecified; F17.200 Nicotine dependence, unspecified, uncomplicated; Z23 Encounter for immunization
CPT/HCPCS: 99285; 96372; 96374; 36415; 80307 ×2; 85025; 80053; 81001; 70450; 70480; 90715; J3010

== ENCOUNTER 2019-11-08 19:27 | Emergency (ER) | payer SELFPAY ==
[2019-11-08] MEDS ORDERED: ONDANSETRON HCL INJ/PF 4 MG/2 ML SDV IV ONE (19:51)
[2019-11-08 20:02] LABS: ABSOLUTE BASOPHILS # (AUTO) 0.1 10^3/uL (0.0-0.2); ABSOLUTE EOSINOPHILS # (AUTO) 0.1 10^3/uL (0.0-0.6); ABSOLUTE LYMPHOCYTES (AUTO) 2.1 10^3/uL (0.5-4.7); ABSOLUTE MONOCYTES (AUTO) 0.6 10^3/uL (0.1-1.4); ABSOLUTE NEUT (AUTO) 3.8 10^3/uL (1.7-8.2); EOSINOPHILS % (AUTO) 1.6 % (0-6); HEMOGLOBIN 15.2 g/dL (13.5-17.0); LYMPHOCYTES % (AUTO) 31.8 % (13-45); MEAN CORPUSCULAR HEMOGLOBIN 34.8 pg (27.0-33.4); MEAN CORPUSCULAR HGB CONC 35.4 g/dL (32.0-36.0); MEAN CORPUSCULAR VOLUME 98 fl (80-97); MONOCYTES % (AUTO) 8.6 % (3-13); PLATELET COUNT 243 10^3/uL (150-450); RED BLOOD COUNT 4.37 10^6/uL (4.35-5.55); RED CELL DISTRIBUTION WIDTH 13.3 % (11.5-14.0); TOTAL CELLS COUNTED % (AUTO) 100 %; WHITE BLOOD COUNT 6.7 10^3/uL (4.0-10.5)
[2019-11-08 20:09] LABS: APPEARANCE,URINE CLEAR; BILIRUBIN,URINE NEGATIVE (NEGATIVE); COLOR,URINE STRAW; GLUCOSE, URINE NEGATIVE (NEGATIVE); KETONES,URINE NEGATIVE (NEGATIVE); LEUKOCYTE ESTERASE,URINE NEGATIVE (NEGATIVE); NITRITE,URINE NEGATIVE (NEGATIVE); PROTEIN,URINE NEGATIVE (NEGATIVE); URINE SPECIFIC GRAVITY 1.002; UROBILINOGEN,URINE NEGATIVE mg/dL (<2.0)
[2019-11-08 20:23] VITALS: BP 169/135
[2019-11-08 20:23] LABS: ALBUMIN 4.4 g/dL (3.5-5.0); ALKALINE PHOSPHATASE 91 U/L (38-126); ANION GAP 10 (5-19); ASPARTATE AMINO TRANSFERASE 26 U/L (17-59); BILIRUBIN,DIRECT 0.3 mg/dL (0.0-0.4); BILIRUBIN,TOTAL 0.7 mg/dL (0.2-1.3); BLOOD UREA NITROGEN 9 mg/dL (7-20); CALCIUM 9.4 mg/dL (8.4-10.2); CARBON DIOXIDE 26 mmol/L (22-30); CHLORIDE 106 mmol/L (98-107); GLUCOSE 93 mg/dL (75-110); POTASSIUM 4.5 mmol/L (3.6-5.0)
[2019-11-08] MEDS ORDERED: HYDROMORPHONE HCL INJ/PF 2 MG/ML AMPULE IV ONE (20:47)
--- NOTE | 2019-11-08 20:50 | ER Document Report ---
ED General - General Chief Complaint: Rectal Bleeding Stated Complaint: RECTAL BLEEDING Time Seen by Provider: 11/08/19 20:40 TRAVEL OUTSIDE OF THE [place] IN LAST 30 DAYS: No - HPI Context: This is a 28-year-old male presents stating that he is having hematemesis and blood coming out of his rectum x3 days. Patient has a history of prior GI bleed after taking an overdose of NSAIDs. Patient states he is having pain in his right lower quadrant that he states radiates around to his right kidney. 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 Patient denies use of NSAIDs. Patient states nothing makes the pain better and pain is intensified when he tries to urinate. Patient rates the pain as a 5 out of 5 and he describes it as sharp. Patient denies multiple sexual contacts or penile discharge. Patient states he still has his appendix. Patient denies fever, cough, chills, prior COVID exposure, known exposure COVID positive persons or known exposure to persons under investigation for COVID. Patient is very anxious and was asking to have his IV taken out so he can leave. Charge nurse made this MD aware of this. After speaking with the patient and examined him, the patient agreed to stay and receive medication for pain and imaging. Associated symptoms: Nausea, Vomiting, Other - See HPI Exacerbated by: Other - See HPI Relieved by: Other - See HPI - Related Data Allergies/Adverse Reactions: NSAIDS (Non-Steroidal Anti-Inflamma Allergy (Verified 09/07/19 12:51) Home Medications: lisinopril 40mg Past Medical History - General Information source: Patient - Social History Smoking Status: Current Every Day Smoker Frequency of alcohol use: Heavy Drug Abuse: Marijuana Family History: Reviewed & Not Pertinent Patient has suicidal ideation: No Patient has homicidal ideation: No - Past Medical History Cardiac Medical History: Reports: Hx Hypertension Renal/ Medical History: Reports: Hx Kidney Stones. Denies: Hx Peritoneal Dialysis Psychiatric Medical History: Reports: Hx Depression Review of Systems - Review of Systems Constitutional: No symptoms reported EENT: No symptoms reported Cardiovascular: No symptoms reported Respiratory: No symptoms reported Gastrointestinal: Abdominal pain, Nausea, Vomiting, Blood in vomit, Rectal bleeding Genitourinary: Dysuria Male Genitourinary: denies: Testicular pain, Penile discharge Musculoskeletal: No symptoms reported Skin: No symptoms reported Hematologic/Lymphatic: No symptoms reported Neurological/Psychological: No symptoms reported -: Yes All other systems reviewed and negative Physical Exam - Vital signs Vitals: Resp Pulse Ox 17 99 11/08/19 19:33 11/08/19 19:33 - Notes Notes: CONSTITUTIONAL [Vital signs reviewed, Patient appears uncomfortable, Alert and oriented X 3, Normal stature.] HEAD [Atraumatic, Normocephalic.] EYES [Eyes are normal to inspection, No discharge from eyes, Extraocular muscles intact, Sclera are normal, Conjunctiva are normal.] ENT Nose examination normal, Posterior pharynx normal, Mouth normal to inspection, no blood noted in oropharynx] NECK [Normal ROM, No jugular venous distention, No meningeal signs, no carotid bruit.] RESPIRATORY CHEST [Chest is nontender, Breath sounds normal, No respiratory distress.] CARDIOVASCULAR [RRR, No murmurs, Normal S1 S2, No rub, No gallop.] ABDOMEN [Abdomen is nontender, No pulsatile masses, No other masses, Bowel sounds normal, No distension, No peritoneal signs, No hernias.] RECTAL deferred at this time due to pt discomfort and agitation BACK [There is right-sided CVA Tenderness to palpation, Normal inspection.] UPPER EXTREMITY [Inspection normal, No cyanosis, No clubbing, No edema, 2+ radial pulses.] LOWER EXTREMITY [Inspection normal, No cyanosis, No clubbing, No edema, No calf tenderness, 2+ femoral pulses.] NEURO [No focal motor deficits, No focal sensory deficits, Speech normal.] SKIN [Skin is warm, Skin is dry, Skin is normal color.] LYMPHATIC [No adenopathy in neck.] PSYCHIATRIC [Anxious affect. ] Course - Re-evaluation Re-evalutation: 11/08/19 22:39 Patient noted to have some bright red blood in his oropharynx and also noted to sneeze droplets of blood. This MD examined the patient's nares bilaterally and the patient's oropharynx. There is no obvious site I can see that is causing the bleeding. At this time, I am going to try nebulized TXA to try to stop the bleeding. 11/08/19 22:46 Rectal exam was performed by this MD. Hemoccult negative. 11/08/19 23:53 MD was notified by nursing at approximately 2335 hrs. that the patient was seen unhooking his IV line which had refluxed blood in it from its peripheral site. Please see nursing notes for further elaboration about this. The concern is that the patient is putting blood on the floor and in his mouth for some type of secondary gain. This MD ordered the peripheral IV removed. Shortly thereafter patient stated that his abdominal pain was completely resolved and he had had no more bleeding from his nose and was ready to be discharged. 11/09/19 00:03 Patient states he was going to get a "Uber" ride upon discharge. He then told the nurse that he was going to [facility] for alcohol rehab. The patient called [facility] prior to discharge and was told that his alcohol level had to be less than 200 for him to be accepted. His last alcohol level was 233. Will recheck alcohol level and see what his current level is. 11/09/19 01:00 Patient's repeat alcohol level is 170. Patient will be discharged to [facility]. - Vital Signs Vital signs: Temp Pulse Resp BP Pulse Ox 97.9 F 100 22 H 169/135 H 100 11/08/19 23:54 11/08/19 19:41 11/08/19 23:00 11/08/19 20:01 11/08/19 23:00 - Laboratory Result Diagrams: 11/08/19 19:37 11/08/19 19:37 Laboratory results interpreted by me: 11/08/19 11/08/19 19:37 19:37 MCV 98 H MCH 34.8 H Urine Blood LARGE H - Diagnostic Test Radiology reviewed: Reports reviewed Discharge - Discharge Clinical Impression: Right flank pain, Factitious illness (physical type), Marijuana abuse Abdominal pain Qualifiers: Abdominal location: right lower quadrant Qualified Code(s): R10.31 - Right lower quadrant pain Hematuria Qualifiers: Hematuria type: unspecified type Qualified Code(s): R31.9 - Hematuria, unspecified Acute alcohol intoxication Qualifiers: Complication of substance-induced condition: with unspecified complication Qualified Code(s): F10.929 - Alcohol use, unspecified with intoxication, unspecified Condition: Stable Disposition: OTHER Additional Instructions: Acute Alcohol Intoxication Your evaluation revealed very high levels of alcohol. You can from drinking a large amount of alcohol rapidly! Further, there's the risk of falls, traffic accidents, and fights. A high portion (about 50 percent) of the serious injuries seen in hospital emergency rooms are caused by alcohol. Alcohol overdosage is usually due to an underlying emotional or psychiatric problem. You may benefit from counselling. If "binge" drinking is an ongoing problem for you, or if you drink ANY AMOUNT of alcohol EVERY day, you most likely have a tendency to alcoholism. You should avoid alcohol totally. We can refer you for treatment. Persons with alcohol problems are often also prone to other addictions -- you should discuss any use of medications or drugs with the doctor. You should be watched at home for the next several hours by someone who has not been drinking. Get extra fluids for the next 24 hours. Call the doctor if there is repeated vomiting, increasing headache, decreasing level of alertness, or any other worsening. Referrals: LUIS YO MD [HONORARY] - Follow up as needed
[2019-11-08 21:07] LABS: INTERNATIONAL RATION (INR) 0.96
[2019-11-08 21:08] LABS: PARTIAL THROMBOPLASTIN TIME 30.1 SEC (23.5-35.8)
--- NOTE | 2019-11-08 21:29 | RADIOLOGY REPORT (SQ) ---
EXAM DESCRIPTION: CT ABDOMEN PELVIS WITHOUT IV CONTRAST COMPLETED DATE/TME: 11/08/2019 20:47 CLINICAL HISTORY: 28 years Male right flank pain and hematuria COMPARISON: 07/31/2019. TECHNIQUE: Contiguous axial images obtained through the abdomen and pelvis without IV contrast. Reformatted images obtained. This exam was performed according to our department optimization program which includes automated exposure control, adjustment of the mA and/or kv according to patient size and/or use of iterative reconstruction technique. FINDINGS: The lung bases are clear. The liver appears unremarkable. The spleen and pancreas appear unremarkable. No adrenal masses. The right kidney is unremarkable without hydronephrosis or obstructive uropathy. Left kidney is absent. Tiny nonobstructing renal calculus on the right. The gallbladder is visualized. No aneurysmal dilatation of the aorta. No bowel obstruction. No free pelvic fluid. IMPRESSION: No acute process noted Tiny nonobstructing right renal calculus Absent left kidney
[2019-11-08] MEDS ORDERED: TRANEXAMIC ACID INJ/PF 1,000 MG/10 ML SDV NEB STA (22:38)
[2019-11-08 23:46] LABS: URINE AMPHETAMINES SCREEN NEGATIVE; URINE BARBITURATES SCREEN NEGATIVE; URINE BENZODIAZEPINES SCREEN NEGATIVE; URINE COCAINE SCREEN NEGATIVE; URINE METHADONE SCREEN NEGATIVE; URINE PHENCYCLIDINE SCREEN NEGATIVE
[2019-11-08 23:48] LABS: URINE MARIJUANA (THC) SCREEN UNCONFIRMED POSITIVE
--- NOTE | 2019-11-09 08:45 | EKG REPORT ---
SEVERITY:- ABNORMAL ECG - SINUS RHYTHM RIGHT ATRIAL ABNORMALITY PROBABLE LEFT VENTRICULAR HYPERTROPHY : Confirmed by: Tyrone Graves MD 09-Nov-2019 08:44:24
== END 2019-11-09 01:08 | disposition other institution (70) ==
LOC: ER 19:27
DX: F10.929 Alcohol use, unspecified with intoxication, unspecified (principal); R31.9 Hematuria, unspecified; F68.10 Factitious disorder imposed on self, unspecified; K92.0 Hematemesis; R10.31 Right lower quadrant pain; F12.10 Cannabis abuse, uncomplicated; K62.5 Hemorrhage of anus and rectum
CPT/HCPCS: 93005; 94640; 99285; 96374; 96375; 36415; 80307 ×2; 83690; 85025; 85610; 85730; 82270; 80053; 81001; 74176; 93010; J1170; J2405; J3490

== ENCOUNTER 2019-11-14 23:32 | Emergency (ER) | payer SELFPAY ==
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
[2019-11-15 00:57] LABS: ABSOLUTE BASOPHILS # (AUTO) 0.1 10^3/uL (0.0-0.2); ABSOLUTE EOSINOPHILS # (AUTO) 0.2 10^3/uL (0.0-0.6); ABSOLUTE LYMPHOCYTES (AUTO) 2.1 10^3/uL (0.5-4.7); ABSOLUTE MONOCYTES (AUTO) 0.7 10^3/uL (0.1-1.4); ABSOLUTE NEUT (AUTO) 4.6 10^3/uL (1.7-8.2); BASOPHILS % (AUTO) 0.9 % (0-2); HEMATOCRIT 37.6 % (37.9-51.0); HEMOGLOBIN 13.5 g/dL (13.5-17.0); LYMPHOCYTES % (AUTO) 27.1 % (13-45); MEAN CORPUSCULAR HEMOGLOBIN 35.5 pg (27.0-33.4); MEAN CORPUSCULAR VOLUME 99 fl (80-97); MONOCYTES % (AUTO) 8.6 % (3-13); PLATELET COUNT 230 10^3/uL (150-450); RED BLOOD COUNT 3.81 10^6/uL (4.35-5.55); RED CELL DISTRIBUTION WIDTH 13.6 % (11.5-14.0); SEGMENTED NEUTROPHILS % (AUTO) 60.4 % (42-78); TOTAL CELLS COUNTED % (AUTO) 100 %; WHITE BLOOD COUNT 7.7 10^3/uL (4.0-10.5)
[2019-11-15] MEDS ORDERED: HALOPERIDOL LACTATE INJ 5 MG/1 ML VIAL ONE (00:59)
[2019-11-15] MEDS ORDERED: DIPHENHYDRAMINE HCL 50 MG/ML VIAL ONE (00:59)
[2019-11-15] MEDS ORDERED: LORAZEPAM INJ 2 MG/1 ML VIAL IM ONE (01:01)
[2019-11-15] MEDS ORDERED: HALOPERIDOL LACTATE INJ 5 MG/1 ML VIAL IM ONE (01:02)
[2019-11-15] MEDS ORDERED: DIPHENHYDRAMINE HCL 50 MG/ML VIAL IM ONE (01:02)
[2019-11-15 01:11] LABS: APPEARANCE,URINE CLEAR; BILIRUBIN,URINE NEGATIVE (NEGATIVE); COLOR,URINE COLORLESS; GLUCOSE, URINE NEGATIVE (NEGATIVE); KETONES,URINE NEGATIVE (NEGATIVE); LEUKOCYTE ESTERASE,URINE NEGATIVE (NEGATIVE); NITRITE,URINE NEGATIVE (NEGATIVE); PROTEIN,URINE NEGATIVE (NEGATIVE); URINE SPECIFIC GRAVITY 1.002; UROBILINOGEN,URINE NEGATIVE mg/dL (<2.0)
[2019-11-15 01:23] LABS: ACETAMINOPHEN < 10 ug/mL (10-30); ALCOHOL 234 mg/dL (NONE DETECTED); ALKALINE PHOSPHATASE 101 U/L (38-126); ANION GAP 12 (5-19); ASPARTATE AMINO TRANSFERASE 29 U/L (17-59); BILIRUBIN,DIRECT 0.2 mg/dL (0.0-0.4); BILIRUBIN,TOTAL 0.4 mg/dL (0.2-1.3); BLOOD UREA NITROGEN 8 mg/dL (7-20); CALCIUM 8.9 mg/dL (8.4-10.2); CARBON DIOXIDE 24 mmol/L (22-30); CHLORIDE 106 mmol/L (98-107); GLUCOSE 102 mg/dL (75-110); POTASSIUM 3.6 mmol/L (3.6-5.0); SALICYLATE 10.5 mg/dL (2.0-20.0); TOTAL PROTEIN 6.4 g/dL (6.3-8.2)
[2019-11-15 01:31] LABS: URINE AMPHETAMINES SCREEN NEGATIVE; URINE BARBITURATES SCREEN NEGATIVE; URINE BENZODIAZEPINES SCREEN NEGATIVE; URINE COCAINE SCREEN NEGATIVE; URINE MARIJUANA (THC) SCREEN UNCONFIRMED POSITIVE; URINE METHADONE SCREEN NEGATIVE; URINE PHENCYCLIDINE SCREEN NEGATIVE
--- NOTE | 2019-11-15 10:06 | EKG REPORT ---
SEVERITY:- BORDERLINE ECG - SINUS RHYTHM PROBABLE LEFT VENTRICULAR HYPERTROPHY : Confirmed by: Nataliya Boyce MD 15-Nov-2019 10:05:38
--- NOTE | 2019-11-15 14:40 | ER Document Report ---
Doctor's Note Notes: 11/15/19 13:11 Patient's vital signs and previous labs, diagnostic images reviewed. Reviewed mental health notes, nurse's notes and previous providers notes. VSS. Pt is in no distress at this time. Denies any SI or HI. General: A&Ox3. Answers questions appropriately. Heart: RRR Lungs: CTAB Psych: Flat affect A/P: Continue monitoring and rec's per MH. Normal diet will likely discharge home.
[2019-11-15 15:07] VITALS: BP 124/80
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
== END 2019-11-15 15:04 | disposition home or self-care (01) ==
LOC: ER 23:32
DX: R45.851 Suicidal ideations (principal); F91.1 Conduct disorder, childhood-onset type; F10.10 Alcohol abuse, uncomplicated; F43.21 Adjustment disorder with depressed mood
CPT/HCPCS: 93005; 99284; 96372 ×2; 36415; 80307 ×4; 85025; 80053; 81001; 93010; J1200; J1630; J2060

== ENCOUNTER 2019-11-21 22:50 | Emergency (ER) | payer SELFPAY ==
--- NOTE | 2019-11-22 | ER Document Report ---
ED Medical Screen (RME) - General Chief Complaint: Abdominal Pain Stated Complaint: POSS KIDNEY STONE Time Seen by Provider: 11/21/19 23:54 Mode of Arrival: Wheelchair Information source: Patient Notes: HPI; 28-year-old male presents to the emergency room stating he was sent over by [facility] for medical clearance for alcohol abuse. He states he normally drinks about 6 alcoholic beverages a day but he only had 2 today. States he is having hematuria and rectal bleeding and states that takes needs him medically cleared before they will accept him for rehab. PE: Alert and oriented x3. Lungs: Clear to auscultation without rales, rhonchi, wheezes. Heart tachycardic without murmurs, rubs, gallops. I have greeted and performed a rapid initial assessment of this patient. A comprehensive ED assessment and evaluation of the patient, analysis of test results and completion of the medical decision making process will be conducted by additional ED providers. I have specifically instructed the patient or family members with the patient to immediately return to any nursing staff should anything change in the patient's condition or with their chief complaint. TRAVEL OUTSIDE OF THE [place] IN LAST 30 DAYS: No - Related Data Allergies/Adverse Reactions: NSAIDS (Non-Steroidal Anti-Inflamma Allergy (Verified 09/07/19 12:51) Past Medical History - Past Medical History Cardiac Medical History: Reports: Hx Hypertension Renal/ Medical History: Reports: Hx Kidney Stones. Denies: Hx Peritoneal Dialysis Psychiatric Medical History: Reports: Hx Depression Past Surgical History: Reports: Hx Kidney (Renal Surgery) - lithotripsy - Immunizations Hx Diphtheria, Pertussis, Tetanus Vaccination: Yes Physical Exam - Vital signs Vitals: Pulse Resp BP Pulse Ox 90 19 160/106 H 97 11/21/19 22:51 11/21/19 22:51 11/21/19 22:51 11/21/19 22:51 Course - Vital Signs Vital signs: Temp Pulse Resp BP Pulse Ox 90 19 160/106 H 97 11/21/19 22:51 11/21/19 22:51 11/21/19 22:51 11/21/19 22:51
[2019-11-22 03:28] LABS: ALBUMIN 4.5 g/dL (3.5-5.0); ALCOHOL 221 mg/dL (NONE DETECTED); ALKALINE PHOSPHATASE 103 U/L (38-126); ANION GAP 11 (5-19); ASPARTATE AMINO TRANSFERASE 27 U/L (17-59); BILIRUBIN,DIRECT 0.3 mg/dL (0.0-0.4); BILIRUBIN,TOTAL 0.4 mg/dL (0.2-1.3); BLOOD UREA NITROGEN 11 mg/dL (7-20); CALCIUM 9.6 mg/dL (8.4-10.2); CARBON DIOXIDE 25 mmol/L (22-30); CHLORIDE 109 mmol/L (98-107); GLUCOSE 98 mg/dL (75-110); POTASSIUM 4.7 mmol/L (3.6-5.0); TOTAL PROTEIN 7.4 g/dL (6.3-8.2)
[2019-11-22 03:39] LABS: ACETAMINOPHEN < 10 ug/mL (10-30); SALICYLATE < 1.0 mg/dL (2.0-20.0)
[2019-11-22 03:53] LABS: ABSOLUTE BASOPHILS # (AUTO) 0.1 10^3/uL (0.0-0.2); ABSOLUTE EOSINOPHILS # (AUTO) 0.1 10^3/uL (0.0-0.6); ABSOLUTE MONOCYTES (AUTO) 0.5 10^3/uL (0.1-1.4); BASOPHILS % (AUTO) 0.9 % (0-2); EOSINOPHILS % (AUTO) 1.8 % (0-6); HEMATOCRIT 42.2 % (37.9-51.0); HEMOGLOBIN 14.7 g/dL (13.5-17.0); LYMPHOCYTES % (AUTO) 25.9 % (13-45); MEAN CORPUSCULAR HEMOGLOBIN 34.3 pg (27.0-33.4); MEAN CORPUSCULAR HGB CONC 34.7 g/dL (32.0-36.0); MEAN CORPUSCULAR VOLUME 99 fl (80-97); PLATELET COUNT 310 10^3/uL (150-450); RED BLOOD COUNT 4.27 10^6/uL (4.35-5.55); RED CELL DISTRIBUTION WIDTH 13.5 % (11.5-14.0); SEGMENTED NEUTROPHILS % (AUTO) 64.4 % (42-78); TOTAL CELLS COUNTED % (AUTO) 100 %; WHITE BLOOD COUNT 7.8 10^3/uL (4.0-10.5)
[2019-11-22] MEDS ORDERED: PROMETHAZINE HCL 25 MG TABLET PO ONE (04:26)
--- NOTE | 2019-11-22 04:28 | ER Document Report ---
ED GI/ - General Chief Complaint: Medical Clearance Stated Complaint: POSS KIDNEY STONE Time Seen by Provider: 11/21/19 23:54 Mode of Arrival: Wheelchair Notes: Patient is a 28-year-old male who comes emergency department for chief complaint of wanting medical clearance. He was sent over by [facility] where he went for detox from alcohol. He states he normally drinks about 6 alcoholic beverages a day, states he only had 2 alcoholic beverages today. He states that he was sent over because he is having intermittent hematuria, right flank pain, and he thinks he is currently passing a kidney stone. He does have a history of kidney stones and has required lithotripsy. 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 He denies fever, vomiting, abdominal pain. He denies any other medical history. He smokes, smokes marijuana, denies recreational drugs otherwise. Patient states that he intermittently has bright red blood in his stools but "only when I take ibuprofen". Denies it currently. TRAVEL OUTSIDE OF THE [place] IN LAST 30 DAYS: No - Related Data Allergies/Adverse Reactions: NSAIDS (Non-Steroidal Anti-Inflamma Allergy (Verified 09/07/19 12:51) Past Medical History - General Information source: Patient - Social History Smoking Status: Current Every Day Smoker Chew tobacco use (# tins/day): No Frequency of alcohol use: Heavy Drug Abuse: Marijuana Lives with: Alone Family History: Reviewed & Not Pertinent - Past Medical History Cardiac Medical History: Reports: Hx Hypertension Renal/ Medical History: Reports: Hx Kidney Stones. Denies: Hx Peritoneal Dialysis Psychiatric Medical History: Reports: Hx Depression Past Surgical History: Reports: Hx Kidney (Renal Surgery) - lithotripsy - Immunizations Hx Diphtheria, Pertussis, Tetanus Vaccination: Yes Review of Systems - Review of Systems Constitutional: No symptoms reported EENT: No symptoms reported Cardiovascular: No symptoms reported Respiratory: No symptoms reported Gastrointestinal: See HPI Genitourinary: See HPI Male Genitourinary: No symptoms reported Musculoskeletal: No symptoms reported Skin: No symptoms reported Hematologic/Lymphatic: No symptoms reported Neurological/Psychological: See HPI Physical Exam - Vital signs Vitals: Pulse Resp BP Pulse Ox 90 19 160/106 H 97 11/21/19 22:51 11/21/19 22:51 11/21/19 22:51 11/21/19 22:51 - Notes Notes: GENERAL: Sleeping but easily aroused. No signs of distress. Smells of alcohol. HEAD: Normocephalic, atraumatic. EYES: Pupils equal, round, and reactive to light. Extraocular movements intact. ENT: Oral mucosa moist, tongue midline. Oropharynx unremarkable. Airway patent. LUNGS: Clear to auscultation bilaterally, no wheezes, rales, or rhonchi. No res piratory distress. Non-tender chest wall. HEART: Regular rate and rhythm. No murmur ABDOMEN: Soft, non-tender. Non-distended. Bowel sounds present in all 4 quadrants. GENITOURINARY: Deferred EXTREMITIES: Moves all 4 extremities spontaneously. No edema, normal radial and dorsalis pedis pulses bilaterally. No cyanosis. BACK: No overt CVA tenderness. No cervical, thoracic, lumbar midline tenderness . No saddle anesthesia, normal distal neurovascular exam. Moves all extremities in full range of motion. NEUROLOGICAL: Alert and oriented x3. Occasional mild slurring of speech. Cranial nerves II through XII grossly intact. Strength 5/5 in all extremities. PSYCH: Normal affect, normal mood. SKIN: Warm, dry, normal turgor. No rashes or lesions noted. Course - Re-evaluation Re-evalutation: Patient is nontoxic on my exam, sleeping and easily aroused, nonspecific abdomen with no noted tenderness, no overt CVA tenderness, no vomiting. Vital signs unremarkable. No fever. CBC unremarkable, chemistry unremarkable, lipase not elevated, urinalysis unremarkable without infection or hematuria. Patient persists that he is having severe right flank pain, because he only has 1 kidney and a history of kidney stones CAT scan was performed, this shows a small kidney stone in the kidney but no ureterolithiasis or concerning acute findings. Patient has no left kidney. Alcohol 226, there have been multiple hours since this was drawn, remaining work-up unremarkable, patient is cleared at this time with alcohol suspected well below 200 at this time if he wants to go to detox. Patient states he does want to go to detox. They will be contacted for patient to be transferred there. Patient states appreciation and agreement. - Vital Signs Vital signs: Temp Pulse Resp BP Pulse Ox 98.6 F 92 15 163/97 H 99 11/22/19 06:22 11/22/19 06:22 11/22/19 06:22 11/22/19 06:22 11/22/19 06:22 - Laboratory Result Diagrams: 11/22/19 02:56 11/22/19 02:56 Laboratory results interpreted by me: 11/22/19 11/22/19 02:56 02:56 RBC 4.27 L MCV 99 H MCH 34.3 H Sodium 145.1 H Chloride 109 H Salicylates < 1.0 L Acetaminophen < 10 L Discharge - Discharge Clinical Impression: Flank pain Alcohol intoxication Qualifiers: Complication of substance-induced condition: uncomplicated Qualified Code(s): F10.920 - Alcohol use, unspecified with intoxication, uncomplicated Alcohol dependence Qualifiers: Substance use status: unspecified alcohol-induced disorder Qualified Code(s): F10.29 - Alcohol dependence with unspecified alcohol-induced disorder Condition: Stable Disposition: HOME, SELF-CARE Additional Instructions: You do not have any passing stones, current bleeding, or any concerning findings. You have a small kidney stone in the right kidney that may pass in the future but is not currently passing at this time. Your evaluation does not show any concerning findings otherwise. Proceed directly to alcohol detox. Return for any concerning symptoms including fever, uncontrolled vomiting, or any other concerning or worsening symptoms.
--- NOTE | 2019-11-22 04:57 | RADIOLOGY REPORT (SQ) ---
CT abdomen and pelvis without contrast on 11/22/2019 at 4:27 AM CLINICAL INDICATION: Right-sided back pain TECHNIQUE: Multiple axial images are obtained throughout the abdomen and pelvis without the administration of contrast. This exam was performed according to our departmental dose-optimization program, which includes automated exposure control, adjustment of the mA and/or kV according to patient size and/or use of iterative reconstruction technique. Total DLP is 259.16 mGy*cm. COMPARISON: 11/08/2019 FINDINGS: Abdomen: The lung bases are clear. There is again noted absence of the left kidney. There is a tiny nonobstructing right renal stone. No right ureteral stone or hydronephrosis is noted. The unenhanced solid abdominal organs are otherwise unremarkable. There is no abdominal adenopathy. There is no free fluid or free air within the abdomen. The abdominal portion of the GI tract is unremarkable. Pelvis: There is no free fluid in the pelvis. There is no pelvic adenopathy. The pelvic portion of the GI tract including the appendix is unremarkable. No bony abnormality is noted. IMPRESSION: 1. Tiny nonobstructing right renal stone. 2. Absent left kidney. 3. Otherwise essentially unremarkable.
[2019-11-22 05:04] LABS: APPEARANCE,URINE CLEAR; BILIRUBIN,URINE NEGATIVE (NEGATIVE); COLOR,URINE YELLOW; GLUCOSE, URINE NEGATIVE (NEGATIVE); KETONES,URINE NEGATIVE (NEGATIVE); LEUKOCYTE ESTERASE,URINE NEGATIVE (NEGATIVE); NITRITE,URINE NEGATIVE (NEGATIVE); PROTEIN,URINE NEGATIVE (NEGATIVE); URINE SPECIFIC GRAVITY 1.013; UROBILINOGEN,URINE NEGATIVE mg/dL (<2.0)
[2019-11-22 05:23] LABS: URINE AMPHETAMINES SCREEN NEGATIVE; URINE BARBITURATES SCREEN NEGATIVE; URINE BENZODIAZEPINES SCREEN NEGATIVE; URINE COCAINE SCREEN NEGATIVE; URINE METHADONE SCREEN NEGATIVE; URINE PHENCYCLIDINE SCREEN NEGATIVE
[2019-11-22 05:24] LABS: URINE MARIJUANA (THC) SCREEN UNCONFIRMED POSITIVE
[2019-11-22 06:23] VITALS: BP 163/97
== END 2019-11-22 06:23 | disposition home or self-care (01) ==
LOC: ER 22:50
DX: F10.229 Alcohol dependence with intoxication, unspecified (principal); Y90.7 Blood alcohol level of 200-239 mg/100 ml; N20.0 Calculus of kidney; R10.9 Unspecified abdominal pain; I10 Essential (primary) hypertension; F12.10 Cannabis abuse, uncomplicated; Q60.0 Renal agenesis, unilateral; F17.200 Nicotine dependence, unspecified, uncomplicated; Z88.8 Allergy status to other drugs, medicaments and biological substances
CPT/HCPCS: 36415; 74176; 80053; 80307; 81001; 83690; 85025; 99284

== ENCOUNTER 2019-11-24 20:39 | Emergency (ER) | payer SELFPAY ==
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
[2019-11-24] MEDS ORDERED: OXYCODONE-ACETAMINOPHEN 5-325 MG TABLET PO ONE (23:31)
[2019-11-24 23:35] LABS: URINE AMPHETAMINES SCREEN NEGATIVE; URINE BARBITURATES SCREEN NEGATIVE; URINE BENZODIAZEPINES SCREEN NEGATIVE; URINE COCAINE SCREEN NEGATIVE; URINE MARIJUANA (THC) SCREEN NEGATIVE; URINE METHADONE SCREEN NEGATIVE; URINE PHENCYCLIDINE SCREEN NEGATIVE
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
--- NOTE | 2019-11-25 00:30 | RADIOLOGY REPORT (SQ) ---
EXAM DESCRIPTION: Site: RP: CT MAXILLOFACIAL WITHOUT IV CONTRAST CLINICAL HISTORY: 28 years Male; head injury, facial injury; TECHNIQUE: High resolution axial CT of the face without contrast, with sagittal and coronal reformatted images. All CT scans at this facility use dose modulation, iterative reconstruction, and/or weight based dosing when appropriate to reduce radiation dose to as low as reasonably achievable. COMPARISON: None. FINDINGS: Facial bones are intact. Mandible is intact. Scattered chronic mucosal thickening in the maxillary sinuses. No air-fluid levels. Multiple dental caries are noted. No retro-orbital hematoma. IMPRESSION: 1. No acute facial fractures 2. Chronic maxillary sinusitis 3. Periodontal disease
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
[2019-11-25 00:55] VITALS: BP 147/110
== END 2019-11-25 01:00 | disposition home or self-care (01) ==
LOC: ER 20:39
DX: S09.90XA Unspecified injury of head, initial encounter (principal); Y04.2XXA Assault by strike against or bumped into by another person, initial encounter; Y92.009 Unspecified place in unspecified non-institutional (private) residence as the place of occurrence of the external cause; H91.92 Unspecified hearing loss, left ear; K05.6 Periodontal disease, unspecified; J32.0 Chronic maxillary sinusitis; F17.200 Nicotine dependence, unspecified, uncomplicated; I10 Essential (primary) hypertension; F32.9 Major depressive disorder, single episode, unspecified; Z79.899 Other long term (current) drug therapy; Z88.8 Allergy status to other drugs, medicaments and biological substances
CPT/HCPCS: 70450; 70486; 80307; 99285